=== PATIENT | female | born 1955 | race Caucasian/White ===

== ENCOUNTER → 2019-04-04 | Outpatient (CLI) | payer MEDICARE ==
--- NOTE | 2019-04-04 15:25 | REP ---
REASON: Pain. No priors. No trauma. Degenerative changes seen involving the elbow and wrist. There is no evidence of an acute fracture. Electronically Signed by Robert Grewal DO 04/05/2019 03:20 P
--- NOTE | 2019-04-04 15:27 | REP ---
REASON: Bilateral hand pain. Degenerative changes are seen throughout each hand. There is asymmetric intra-digital joint space narrowing bilaterally. There is no evidence of an acute fracture. IMPRESSION: Degenerative changes bilaterally. Electronically Signed by Robert Grewal DO 04/05/2019 03:20 P
--- NOTE | 2019-04-04 15:27 | REP ---
BILATERAL WRIST: REASON: Wrist pain. Degenerative change is seen involving each wrist. There is no acute fracture. IMPRESSION: Bilateral wrist degenerative changes. Electronically Signed by Robert Grewal DO 04/05/2019 03:20 P
== END ==
LOC: M CLY 14:25
PROVIDERS: ATTEND Physician Assistant
DX: M19.031 Primary osteoarthritis, right wrist (principal); M19.032 Primary osteoarthritis, left wrist; M19.041 Primary osteoarthritis, right hand; M19.042 Primary osteoarthritis, left hand; M19.021 Primary osteoarthritis, right elbow; M79.601 Pain in right arm; M25.531 Pain in right wrist
CPT/HCPCS: 73090; 73110; 73130; G0463

== ENCOUNTER → 2019-08-24 | Outpatient (CLI) | payer MEDICARE ==
--- NOTE | 2019-08-29 16:14 | REPMRS ---
Patient History The patient states she had a clinical breast exam in 06/2019. Patient has history of other cancer at age 62. No known family history of cancer. No Hormone Replacement Therapy Digital Woman Screen Mammo: August 24, 2019 - Exam #: [id number] Bilateral CC and MLO view(s) were taken. Technologist: Savannah Wilson, Technologist Prior study comparison: July 12, 2018, bilateral digital mammo screening bilat, performed at [facility]. July 11, 2017, bilateral digital woman screen mammo, performed at [facility]. FINDINGS: The breast tissue is almost entirely fat. There has been no change in the appearance of the mammogram from the prior studies. There is no interval development of dominant mass, architectural distortion, or grouped microcalcification typical of malignancy. 3-D tomosynthesis shows no additional findings. Assessment: BI-RADS/ACR category 1 mammogram. Negative Mammogram. Recommendation Routine screening mammogram of both breasts in 1 year (for women over age 40). This patient's Lifetime Breast Cancer RIsk is estimated at 8.0 %. This mammogram was interpreted with the aid of an FDA-approved computer-aided dectection system. Electronically Signed By: Juan M Celaya MD 08/29/19 [id number]
== END ==
LOC: M WHC 13:02
PROVIDERS: ATTEND Obstetrics & Gynecology
DX: Z12.31 Encounter for screening mammogram for malignant neoplasm of breast (principal); Z85.9 Personal history of malignant neoplasm, unspecified

== ENCOUNTER → 2019-08-30 | Outpatient (REF) | payer MEDICARE ==
[2019-08-30 18:58] LABS: ALBUMIN 3.6 GM/DL (3.2-5.2); ALT/SGPT 50 U/L (12-78); BILIRUBIN,TOTAL 0.4 MG/DL (0.2-1.0); BLOOD UREA NITROGEN 21 MG/DL (7-18); CALCIUM LEVEL 8.4 MG/DL (8.8-10.2); CARBON DIOXIDE LEVEL 24 MEQ/L (21-32); CHLORIDE LEVEL 110 MEQ/L (98-107); CREATININE FOR GFR 0.96 MG/DL (0.55-1.30); GLOMERULAR FILTRATION RATE > 60.0 (>45); GLUCOSE, FASTING 110 MG/DL (70-100); SODIUM LEVEL 142 MEQ/L (136-145); TOTAL PROTEIN 6.6 GM/DL (6.4-8.2)
[2019-08-30 19:14] LABS: HEMATOCRIT 42.7 % (36.0-47.0); HEMOGLOBIN 13.5 g/dl (12.0-15.5); MEAN CORPUSCULAR HEMOGLOBIN 30.1 pg (27.0-33.0); MEAN CORPUSCULAR HGB CONC 31.6 g/dl (32.0-36.5); MEAN CORPUSCULAR VOLUME 95.1 fl (80.0-96.0); RED BLOOD COUNT 4.49 10^6/uL (4.00-5.40); WHITE BLOOD COUNT 3.2 10^3/uL (4.0-10.0)
[2019-08-30 19:18] LABS: INR 1.12; PROTHROMBIN TIME 14.1 SECONDS (11.8-14.0)
[2019-08-30 19:50] LABS: PLATELET COUNT, AUTOMATED 85 10^3/uL (150-450)
== END ==
LOC: M LABDRWCV 16:20
DX: K74.60 Unspecified cirrhosis of liver (principal); E66.9 Obesity, unspecified

== ENCOUNTER → 2019-09-20 | Outpatient (CLI) | payer MEDICARE ==
[2019-09-20 11:29] LABS: BASO % 0.6 % (0.0-1.0); EOS # 0.1 10^3/uL (0.0-0.5); EOS % 2.3 % (0.0-3.0); HEMATOCRIT 42.3 % (36.0-47.0); HEMOGLOBIN 13.5 g/dl (12.0-15.5); LYMPH # 1.2 10^3/uL (1.5-5.0); LYMPH % 33.4 % (24.0-44.0); MEAN CORPUSCULAR HEMOGLOBIN 30.1 pg (27.0-33.0); MEAN CORPUSCULAR HGB CONC 31.9 g/dl (32.0-36.5); MEAN CORPUSCULAR VOLUME 94.4 fl (80.0-96.0); MONO # 0.2 10^3/uL (0.0-0.8); MONO % 6.3 % (0.0-5.0); NEUTROPHILS % 57.1 % (36.0-66.0); RED BLOOD COUNT 4.48 10^6/uL (4.00-5.40); WHITE BLOOD COUNT 3.5 10^3/uL (4.0-10.0)
[2019-09-20 11:31] LABS: PLATELET COUNT, AUTOMATED 79 10^3/uL (150-450)
[2019-09-20 11:42] LABS: INR 1.16; PROTHROMBIN TIME 14.5 SECONDS (11.8-14.0)
== END ==
LOC: M LAB 10:50
PROVIDERS: ATTEND Dentist
DX: K70.0 Alcoholic fatty liver (principal)

== ENCOUNTER → 2019-10-23 | Outpatient (CLI) | payer MEDICARE ==
--- NOTE | 2019-10-23 09:11 | REP ---
COMPLETE ABDOMINAL SONOGRAPHY: HISTORY: Cirrhosis. Fatty liver disease. Evaluate for HCC and portal hypertension and ascites. No comparison imaging. SONOGRAPHIC FINDINGS: Scanning through the right upper quadrant of the abdomen shows very limited visualization. Scan quality is inhibited by patient body habitus. Question of layered echogenic material in the region of the gallbladder. The gallbladder is poorly seen. Liver appears to have a coarse texture but its parenchyma is poorly displayed as well. No obvious hepatic mass lesion. CBD is normal measuring 0.4 cm in greatest diameter. The spleen is borderline in size measuring 13.7 cm in greatest diameter. There is no evidence of ascites. Normal caliber aorta is seen. Renal cortical echogenicity pattern appears to be normal. There is no evidence of hydronephrosis or renal mass. Right renal dimensions are 9.1 x 3.9 x 4.1 cm. Left kidney measures 9.4 x 3.7 x 4.0 cm. IMPRESSION: Limited image quality and visualization. Coarse liver texture. Question gallstones but gallbladder very poorly seen. No evidence of ascites. Borderline spleen size. Electronically Signed by Med Celaya MD 10/23/2019 05:54 P
== END ==
LOC: M RAD 07:17
PROVIDERS: ATTEND Internal Medicine Gastroenterology
DX: K74.60 Unspecified cirrhosis of liver (principal)

== ENCOUNTER → 2019-10-30 | Outpatient (REF) | payer MEDICARE ==
[~2019-10-30] MED LIST: AMLO5TAB6 PO; CALC600C3 PO; CVS50CAP PO; GABA-1171 PO; LAXA15TA PO; LEVO175T2 PO; LOSA100T50 PO; METO25TA4 PO; MULTCAP PO; NON-325T5 PO; OMEP40CA97 PO; SIMV10TA21 PO; VITA100T28 PO; VITA500T PO
[2019-10-30 17:24] LABS: BASO % 0.5 % (0.0-1.0); EOS # 0.1 10^3/uL (0.0-0.5); EOS % 2.2 % (0.0-3.0); HEMATOCRIT 39.6 % (36.0-47.0); HEMOGLOBIN 13.3 g/dl (12.0-15.5); LYMPH # 1.4 10^3/uL (1.5-5.0); LYMPH % 38.1 % (24.0-44.0); MEAN CORPUSCULAR HEMOGLOBIN 31.2 pg (27.0-33.0); MEAN CORPUSCULAR HGB CONC 33.6 g/dl (32.0-36.5); MONO # 0.3 10^3/uL (0.0-0.8); MONO % 7.6 % (0.0-5.0); NEUTROPHILS # 1.9 10^3/uL (1.5-8.5); NEUTROPHILS % 51.3 % (36.0-66.0); RED BLOOD COUNT 4.26 10^6/uL (4.00-5.40); WHITE BLOOD COUNT 3.7 10^3/uL (4.0-10.0)
[2019-10-30 17:27] LABS: PLATELET COUNT, AUTOMATED 59 10^3/uL (150-450)
[2019-10-30 18:11] LABS: ALBUMIN 3.6 GM/DL (3.2-5.2); BILIRUBIN,DIRECT 0.2 MG/DL (0.0-0.2); BILIRUBIN,TOTAL 0.4 MG/DL (0.2-1.0)
== END ==
LOC: M LABDRWCV 16:09
PROVIDERS: ATTEND Internal Medicine Gastroenterology
DX: K75.81 Nonalcoholic steatohepatitis (NASH) (principal)

== ENCOUNTER → 2019-11-07 | Outpatient (REF) | payer MEDICARE ==
[2019-11-07 16:23] LABS: INR 1.11; PARTIAL THROMBOPLASTIN TIME 31.6 SECONDS (25.0-38.4)
== END ==
LOC: M LABDRWCV 15:47
PROVIDERS: ATTEND Internal Medicine Gastroenterology
DX: K75.81 Nonalcoholic steatohepatitis (NASH) (principal)

== ENCOUNTER → 2019-12-03 | Outpatient (CLI) | payer MEDICARE ==
[~2019-12-03] MED LIST changes: +VITA-243 PO; -VITA500T PO
--- NOTE | 2019-12-05 17:14 | SLEEPCENT ---
DATE OF PROCEDURE: 12/03/2019 Ordered by: NIKKIE Cornelius Nocturnal polysomnography was performed for evaluation of sleep physiology in this patient with a history of excessive somnolence and nonrestorative sleep. 6 hours and 41 minutes of data were reviewed. There were 344 minutes of sleep identified. Sleep latency was normal at 10 minutes. REM latency was normal at 97 minutes. Sleep architecture was fairly good. There was some mild fragmentation. Three REM cycles were noted. Overall sleep efficiency was 86.8%. The patient's electrocardiogram showed a sinus rhythm with small complexes. Average heart rate 55 beats per minute. EEG showed reasonably normal waveforms for awake and sleep. There were 80 respiratory events identified of 10 seconds in duration or greater for an apnea-hypopnea index of 14. The events were primarily obstructive, not exclusive to sleep stage nor body posture. Arousals from respiratory events occurred 3.7 times per hour and oxygen desaturations were seen into the low 80s. There was some minor activity in the limb leads. No trains of events were seen and snoring was noted over the course of study. IMPRESSION Obstructive sleep apnea syndrome (G47.33). Apnea-hypopnea index 14. RECOMMENDATIONS The patient should be encouraged to return to the sleep disorder center for pressure therapy. In the interim, alcohol and sedative avoidance should be practiced and caution exercised during the operation of motor vehicles.
== END ==
LOC: M SLEEP 20:00
PROVIDERS: ATTEND Nurse Practitioner Family
DX: G47.33 Obstructive sleep apnea (adult) (pediatric) (principal)

== ENCOUNTER → 2020-01-21 | Outpatient (REF) | payer MEDICARE | LOC: M SFHCCLAY 10:10 | PROVIDERS: ATTEND Physician Assistant | DX: J35.8 Other chronic diseases of tonsils and adenoids (principal) ==

== ENCOUNTER → 2020-01-28 | Outpatient (CLI) | payer MEDICARE ==
[~2020-01-28] MED LIST changes: +AMOX875T2 PO; +CIPR-249 PO; +INDE60CA4 PO; +PROT1TAB2 PO; +PROTPAK PO
== END ==
LOC: M LABSMTC 12:52
PROVIDERS: ATTEND Anesthesiology
DX: Z01.818 Encounter for other preprocedural examination (principal); Z11.59 Encounter for screening for other viral diseases

== ENCOUNTER 2020-01-31 07:05 | Inpatient (IN) | payer MEDICARE ==
[~2020-01-31] VITALS: Ht 147.3 cm; Wt 75.3 kg
[~2020-01-31 07:05] MED LIST changes: -CIPR-249 PO; -INDE60CA4 PO; +NS 1,000 ML IV ONE; -PROT1TAB2 PO; -PROTPAK PO; +fentaNYL 100 MCG/2 ML INJECTION (J3010) As Ordered ONE
[2020-01-31] MEDS ORDERED: LIDOCAINE 2% 100MG/5ML SDV (FOR ANES.) As Ordered ONE (08:26)
[2020-01-31] MEDS ORDERED: propofoL 200 MG/20 ML VIAL As Ordered ONE ×2 (08:26→09:06)
[2020-01-31] MEDS ORDERED: LABETALOL 100MG/20ML VIAL As Ordered ONE (08:43)
[2020-01-31] MEDS ORDERED: NS 1,000 ML IV SCH (09:58)
[2020-01-31] MEDS ORDERED: fentaNYL 100 MCG/2 ML INJECTION (J3010) IV PRN (10:00)
[2020-01-31] MEDS ORDERED: LR 1,000 ML IV SCH ×3 (10:00→18:00)
[2020-01-31] MEDS ORDERED: ONDANSETRON 4MG/2ML VIAL IV PRN (10:00)
[2020-01-31] MEDS ORDERED: PANTOPRAZOLE SODIUM 40 MG in D5W 50 ML IV SCH (10:00)
[2020-01-31] MEDS ORDERED: MORPHINE 4 MG/ML 1ML VIAL/SYRINGE (J2270) IV PRN (10:15)
[2020-01-31 10:28] VITALS: BP 166/74
[2020-01-31 10:41] LABS: HEMOGLOBIN 12.8 g/dl (12.0-15.5); MEAN CORPUSCULAR HEMOGLOBIN 30.4 pg (27.0-33.0); MEAN CORPUSCULAR HGB CONC 32.8 g/dl (32.0-36.5); MEAN CORPUSCULAR VOLUME 92.6 fl (80.0-96.0); RED BLOOD COUNT 4.21 10^6/uL (4.00-5.40); WHITE BLOOD COUNT 3.3 10^3/uL (4.0-10.0)
--- NOTE | 2020-01-31 10:42 | ROOR ---
Patient Name: Brooklynn Jaramillo Procedure Date: 01/31/2020 8:27 AM Date of : 1955 Age: 64 Room: [facility] Gender: Female Note Status: Finalized Procedure: Colonoscopy Indications: High risk colon cancer surveillance: Personal history of colonic polyps Providers: Mehul Daily MD Referring MD: NIKKIE Parks pa-c Requesting Provider: Medicines: Monitored Anesthesia Care Complications: No immediate complications. Procedure: Pre-Anesthesia Assessment: - Prior to the procedure, a History and Physical was performed, and patient medications and allergies were reviewed. The patient is competent. The risks and benefits of the procedure and the sedation options and risks were discussed with the patient. All questions were answered and informed consent was obtained. Patient identification and proposed procedure were verified by the physician, the nurse and the anesthesiologist in the procedure room. Mental Status Examination: alert and oriented. Airway Examination: normal oropharyngeal airway and neck mobility. Respiratory Examination: clear to auscultation. CV Examination: normal. Prophylactic Antibiotics: The patient does not require prophylactic antibiotics. Prior Anticoagulants: The patient has taken no previous anticoagulant or antiplatelet agents. ASA Grade Assessment: II - A patient with mild systemic disease. After reviewing the risks and benefits, the patient was deemed in satisfactory condition to undergo the procedure. The anesthesia plan was to use monitored anesthesia care (MAC). Immediately prior to administration of medications, the patient was re-assessed for adequacy to receive sedatives. The heart rate, respiratory rate, oxygen saturations, blood pressure, adequacy of pulmonary ventilation, and response to care were monitored throughout the procedure. The physical status of the patient was re-assessed after the procedure. The Colonoscope was introduced through the anus and advanced to the cecum, identified by appendiceal orifice and ileocecal valve. The colonoscopy was performed without difficulty. The patient tolerated the procedure well. The quality of the bowel preparation was fair. The ileocecal valve, appendiceal orifice, and rectum were photographed. Scope insertion time was 2 minutes. Scope withdrawal time was 10 minutes. The total duration of the procedure was 14 minutes. Findings: The perianal and digital rectal examinations were normal. Three sessile polyps were found in the transverse colon and ascending colon. The polyps were 5 to 10 mm in size. These polyps were removed with a hot snare. Resection and retrieval were complete. Verification of patient identification for the specimen was done by the physician and nurse using the patient's name, date and medical record number. Estimated blood loss was minimal. Non-bleeding external and internal hemorrhoids were found during retroflexion. The hemorrhoids were medium-sized. Impression: - Preparation of the colon was fair. - Three 5 to 10 mm polyps in the transverse colon and in the ascending colon, removed with a hot snare. Resected and retrieved. - Non-bleeding external and internal hemorrhoids. Recommendation: - Patient has a contact number available for emergencies. The signs and symptoms of potential delayed complications were discussed with the patient. Return to normal activities tomorrow. Written discharge instructions were provided to the patient. - NPO today, then advance as tolerated to low sodium diet. - Continue present medications. - Follow the recommendations as per the other procedure note. - Await pathology results. - Repeat colonoscopy in 1 year because the bowel preparation was suboptimal and for surveillance of multiple polyps. - Return to primary care physician. - Telephone GI clinic for pathology results in 2 weeks. Mehul Daily MD Mehul Daily MD 01/31/2020 10:42:04 AM Electronically signed by Mehul Daily MD Number of Addenda: 0 Note Initiated On: 01/31/2020 8:27 AM Estimated Blood Loss: Estimated blood loss was minimal.
[2020-01-31 10:48] LABS: PLATELET COUNT, AUTOMATED 74 10^3/uL (150-450)
--- NOTE | 2020-01-31 10:49 | ROOR ---
Patient Name: Brooklynn Jaramillo Procedure Date: 01/31/2020 8:27 AM Date of : 1955 Age: 64 Room: [facility] Gender: Female Note Status: Finalized Procedure: Upper GI endoscopy Indications: Cirrhosis rule out esophageal varices, Follow-up of gastritis Providers: Mehul Daily MD Referring MD: NIKKIE Parks pa-c Requesting Provider: Medicines: Monitored Anesthesia Care Complications: No immediate complications. Procedure: Pre-Anesthesia Assessment: - Prior to the procedure, a History and Physical was performed, and patient medications and allergies were reviewed. The patient is competent. The risks and benefits of the procedure and the sedation options and risks were discussed with the patient. All questions were answered and informed consent was obtained. Patient identification and proposed procedure were verified by the physician, the nurse and the anesthesiologist in the procedure room. Mental Status Examination: alert and oriented. Airway Examination: normal oropharyngeal airway and neck mobility. Respiratory Examination: clear to auscultation. CV Examination: normal. Prophylactic Antibiotics: The patient does not require prophylactic antibiotics. Prior Anticoagulants: The patient has taken no previous anticoagulant or antiplatelet agents. ASA Grade Assessment: III - A patient with severe systemic disease. After reviewing the risks and benefits, the patient was deemed in satisfactory condition to undergo the procedure. The anesthesia plan was to use monitored anesthesia care (MAC). Immediately prior to administration of medications, the patient was re-assessed for adequacy to receive sedatives. The heart rate, respiratory rate, oxygen saturations, blood pressure, adequacy of pulmonary ventilation, and response to care were monitored throughout the procedure. The physical status of the patient was re-assessed after the procedure. The Endoscope was introduced through the mouth, and advanced to the second part of duodenum. The upper GI endoscopy was accomplished without difficulty. The patient tolerated the procedure well. Findings: There is no endoscopic evidence of varices in the entire esophagus. Multiple 8 to 15 mm pedunculated and sessile polyps with no bleeding and stigmata of recent bleeding were found in the cardia, in the gastric fundus and in the gastric body. The polyp was removed with a hot snare. Resection and retrieval were complete. For hemostasis, five hemostatic clips were successfully placed. There was no bleeding at the end of the procedure. One band was successfully placed. There was no bleeding at the end of the procedure. Scattered severe mucosal changes characterized by friability (with contact bleeding), granularity, inflammation and linear erosions were found in the gastric body and in the gastric antrum. Biopsies were taken with a cold forceps for Helicobacter pylori testing. Verification of patient identification for the specimen was done by the physician and nurse using the patient's name, date and medical record number. Estimated blood loss was minimal. The duodenal bulb and second portion of the duodenum were normal. Impression: - Multiple gastric polyps. Resected and retrieved. Clips were placed. Banded. - Friable (with contact bleeding), granular, inflamed and linearly eroded mucosa in the gastric body and antrum. Biopsied. - Normal duodenal bulb and second portion of the duodenum. Recommendation: - Patient has a contact number available for emergencies. The signs and symptoms of potential delayed complications were discussed with the patient. Return to normal activities tomorrow. Written discharge instructions were provided to the patient. - NPO today, and then start on clear liquid diet for 24 hours and then advance if tolerated to low sodium diet ( <2gm per day).. - Continue present medications. - IV PPI drip for 24 hours and then switch to oral PPI for total of 6 weeks. - Continue IV Octreotide drip of 50mcg/hr for 3- 5 days - Antibiotics (ceftriaxone - 1 gm once daily if not contra-indicated) for total of 7 days. ( if being discharged can switch to Oral ciprofloxacin). - Monitor Hemoglobin/Hematocrit every 6 - 8 hours: transfuse as needed to maintain Hb around 7-8. ( Do Not transfuse over that level). If platelets lower than 50 K please transfuse atleast 1 bag. - ICU/PCU monitoring for 24 hours. Patient is transferred to ICU for monitoring. - Do Not place NG or OG tube. - Give antiemetics IV PRN for 24 hours. - Obtain Ultrasound abdomen with doppler of the portal vein. - Update GI if any acute change in status. - At the time of discharge, please start on non selective betablocker ( prefer propranolol)-- dose titrated based on the BP and heart rate ( goal 55 - 60 / min). - Upon discharge please give outpatient appointment in GI clinic in 2-3 weeks. ( please call [phone]). Mehul Daily MD Mehul Daily MD 01/31/2020 10:48:19 AM Electronically signed by Mehul Daily MD Number of Addenda: 0 Note Initiated On: 01/31/2020 8:27 AM Estimated Blood Loss: Estimated blood loss was minimal.
--- NOTE | 2020-01-31 10:53 | HPEPDOC ---
General Date of Admission Jan 31, 2020 at 10:15 Date of Service: Jan 31, 2020 Chief Complaint The patient is a 64-year-old female admitted with a reason for visit of Surveillance For Varices,Colon Polyps. Source: Patient Exam Limitations: No limitations Timing/Duration: Other (not applicable) Severity: Other (not applicable) Associated Symptoms: Other (. Upper GI bleed) History of Present Illness This is a 63 years old white female with past medical history of hypertension, GERD, hypothyroidism, sleep apnea, restless legs, but it cirrhosis skin cancer, had an elective EGD done today by Dr. Daily, patient was found to have a multiple gastric polyps which were atypical looking and friable many took a sample of polyps. This started bleeding and since has patient has a low platelet count. It took her more than average time to stop the bleeding, but he is recommended to admit patient to ICU for close observation overnight. When examined patient, she denies any complaints, any chest pain, shortness of breath, nausea, vomiting or GI bleed Home Medications Scheduled Amlodipine Besylate (Amlodipine Besylate) 5 Mg Tablet, 5 MG PO DAILY, (Reported) Amoxicillin/Potassium Clav (Amox-Clav 875-125 mg Tablet) 1 Each Tablet, 1 TAB PO BID, (Reported) Ascorbic Acid (Vitamin C) 500 Mg Tablet, 500 MG PO DAILY, (Reported) Calcium Carbonate/Vitamin D3 (Calcium 600+D Softgel) 1 Each Capsule, 1 CAP PO DAILY, (Reported) Gabapentin (Gabapentin) 100 Mg Capsule, 100 MG PO TID, (Reported) Levothyroxine Sodium (Levothyroxine Sodium) 175 Mcg Tablet, 175 MCG PO DAILY, (Reported) Losartan Potassium (Losartan Potassium) 100 Mg Tablet, 100 MG PO DAILY, (Reported) Metoprolol Tartrate (Metoprolol Tartrate) 25 Mg Tablet, 25 MG PO BID, (Reported) Multivitamin (Multivitamins) 1 Each Capsule, 1 CAP PO DAILY, (Reported) Omeprazole (Omeprazole) 40 Mg Capsule.dr, 40 MG PO DAILY, (Reported) Pamabrom (Diuretic Softgel) 50 Mg Capsule, Unknown Dose PO DAILY, (Reported) Sennosides (Laxative Pills) 15 Mg Tablet, 25 MG PO Q2D, (Reported) Simvastatin (Simvastatin) 10 Mg Tablet, 10 MG PO QHS, (Reported) Thiamine Mononitrate (Vit B1) (Vitamin B-1) 100 Mg Tablet, Unknown Dose PO DAILY, (Reported) Scheduled PRN Acetaminophen (Acetaminophen) 325 Mg Tablet, 325 MG PO PRN PRN for PAIN, (Reported) Allergies Coded Allergies: No Known Allergies (Unverified , 11/02/19) Past Medical History Medical History Hypertension, GERD, hypothyroidism, obstructive sleep apnea, restless leg syndrome, cirrhosis of liver and skin cancer Surgical History , 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 Family History at the age of 74 due to unknown causes, one daughter of complication secondary to his skin cancer Social History * Smoker: former Smoker Alcohol: Denies Drugs: denies A-FIB/CHADSVASC A-FIB History Current/History of A-Fib/PAF?: No Review of Systems Constitutional: Denies: Chills, Fever, Malaise, Night Sweats, Weakness, Fatigue, Weight Loss, Lethargy, Other Eyes: Denies: Pain, Vision change, Conjunctivae inflammation, Eyelid inflammation, Redness, Other ENT: Denies: Head Aches, Ear Pain, Dysphagia, Sinus Congestion, Post Nasal Drip, Sore Throat, Epistaxis, Other Symptoms Skin: Denies: Rash, Lesions, Jaundice, Bruising, Itching, Dry, Breakdown, Nail Changes, Other Pulmonary: Denies: Dyspnea, Cough, Pleuritic Chest Pain, Other Symptoms Cardiovascular: Denies: Chest Pain, Palpitations, Orthopnea, Paroxysmal Noc. Dyspnea, Edema, Lt Headedness, Other Symptoms Gastrointestinal: Denies: Nausea, Vomiting, Abdominal Pain, Diarrhea, Constipation, Melena, Hematochezia, Other Symptoms Genitourinary: Denies: Dysuria, Frequency, Incontinence, Hematuria, Retention, Other Symptoms Hematologic: Denies: Bruising, Bleeding Excessively, Petecchia, Purpura, Enlarged Lymph Nodes, Other Hematologic Endocrine: Denies: Polydipsia, Polyphagia, Polyuria, Heat Intolerance, Cold Intolerance, Other Endocrine Sx Musculoskeletal: Denies: Neck Pain, Back Pain, Shoulder Pain, Arm Pain, Hand Pain, Leg Pain, Foot Pain, Joint Pain, Muscle Pain, Spasms, Other Symptoms Neurological: Denies: Weakness, Numbness, Incoordination, Change in speech, Confusion, Seizures, Other Symptoms Psych: Denies: Mood Normal, Anxiety, Depression, Memory Issues, Thoughts of Self Harm, Anger, Thoughts of Harming Other, Other Psych Physical Examination General Exam: Positive: Alert, Cooperative Eye Exam: Positive: PERRLA, Conjunctiva & lids normal ENT Exam: Positive: Atraumatic, Mucous membr. moist/pink Neck Exam: Positive: Supple Chest Exam: Positive: Clear to auscultation, Normal air movement Heart Exam: Positive: Normal S1, Normal S2 Abdomen Exam: Positive: Soft Extremity Exam: Positive: Normal pulses Skin Exam: Positive: Nl turgor and temperature Neuro Exam: Positive: Strength at 5/5 X4 ext, Sensation Intact, Cranial Nerves 3-12 NL Psych Exam: Positive: Mood NL, Oriented x 3 Vital Signs Vital Signs Date Time Temp Pulse Resp B/P (MAP) Pulse Ox O2 Delivery O2 Flow Rate FiO2 01/31/20 09:58 97.2 66 18 115/63 (80) 97 Nasal Cannula 2 Laboratory Data CBC/BMP Problems (1) UGIB (upper gastrointestinal bleed) Problem Text: Admit patient to ICU for close monitoring IV fluid normal saline 100 mL per hour Protonix drip set per orders Octreotide drip, and per orders H&H/CBC every 8 hours for 24 hour Transfuse PRBC for live hemoglobin less than 8 Transfuse platelets if platelet counts less than 50,000 DVT prophylaxis bilateral SCDs Diet is nothing by mouth Activity as tolerated Further instruction as per Dr. Daily (2) BRIGIDO (obstructive sleep apnea) Status: Chronic Problem Text: History of BRIGIDO, no intervention at the present time (3) HTN (hypertension) Status: Chronic Problem Text: History of hypertension All by mouth meds on hold (4) GERD (gastroesophageal reflux disease) Status: Chronic Problem Text: History of GERD in the past Currently on PPI infusion (5) Hypothyroid Status: Chronic Problem Text: By mouth meds on hold. Will restart from tomorrow (6) Cirrhosis of liver Status: Chronic Problem Text: Stable Will restart all home meds from tomorrow Plan / VTE VTE Prophylaxis Ordered?: Yes DAVID BRAY MD Jan 31, 2020 10:53
[2020-01-31] MEDS: cefTRIAXone SOD 1 GM in D5W MINI-BAG PLUS 50 ML IV SCH (11:39)
[2020-01-31] MEDS: PANTOPRAZOLE SODIUM 40 MG in D5W 50 ML IV SCH ×2 (11:47→15:47)
[2020-01-31] MEDS: OCTREOTIDE ACETATE 1,200 MCG in NS 238.8 ML IV SCH (11:47)
[2020-01-31] MEDS: ONDANSETRON 4MG/2ML VIAL IV SCH ×4 (11:47→23:19)
[2020-01-31 11:55] VITALS: BP 142/64
--- NOTE | 2020-01-31 13:22 | GIPN ---
[facility] GI Progress Note GI Progress Note DATE: Jan 31, 2020 Primary physician/ hospitalist: Shay LUNDY),/ Dr. Sparrow. Reason for hospitalization: post procedure monitoring and therapy for Gi bleeding. HPI: 63 year old female patient with HTN, hypothyroidism, HLD, obesity (BMI 38), was being evaluated in Gi clinic for portal hypertension, suspected liver cirrhosis from, steatohepatitis, and screening colonoscopy. Patient reports having EGD and colonoscopy every 2 years as per her previous GI for screening/ surveillance. Patient today underwent elective procedures detailed reports below. Post procedure patient is being admitted to hospital for monitoring and further evaluation. Post procedure on examination, patient denies any active Gi symptoms. --- EGD showed - Multiple gastric polyps and severe gastritis with contact bleeding were noted. One fundic polyp was resected and retrieved. Noted profuse bleeding, Clips and loop band was placed to control bleeding. No bleeding at the end of the procedure. Normal duodenal bulb and second portion of the duodenum. --- Colonoscopy few polyps removed. Fair bowel prep. Recommended to repeat in 1 year depending on pathology. Exam: Vitals: reviewed General: Alert and oriented x 3, not in distress HEENT: NO pallor, no icterus. Normal oropharynx, NO cervical lymph nodes. Chest: symmetric with bilateral clear air entry, CVS: S1, S2 heard, normal, no murmurs . Abdomen: non-distended, soft, non-tender, no palpable masses, normal bowel sounds heard. Extremities: no pedal edema, pulses palpable. 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 Moves all extremities Skin: no rash. Labs: reviewed. Impression: - Severe gastritis with gastric polyp and contact bleeding and polypectomy associated bleeding s/p treatment with clip and loop ligation in patient with liver cirrhosis and low platelets. Needs inpatient monitoring and treatment. - Liver cirrhosis likely etiology JURADO - compensated. No ascites, No esophageal varices on todays EGD but suspected portal hypertensive gastropathy vs other causes for gastritis. Recommendations: - Patient educated about the test results, possible differential diagnoses and All questions answered. - NPO today, and then start on clear liquid diet for 24 hours and then advance if tolerated to low sodium diet (<2gm per day).. - Continue present medications. - IV PPI drip for 24 hours and then switch to oral PPI for total of 6 weeks. - Continue IV Octreotide drip of 50mcg/hr for 3- 5 days - Antibiotics (ceftriaxone - 1 gm once daily if not contra-indicated) for total of 7 days. ( if being discharged can switch to Oral ciprofloxacin). - Monitor Hemoglobin/Hematocrit every 6 - 8 hours: transfuse as needed to maintain Hb around 7-8. ( Do Not transfuse over that level). If platelets lower than 50 K please transfuse atleast 1 bag. - ICU/PCU monitoring for 24 hours. Patient is transferred to ICU for monitoring. - Do Not place NG or OG tube. - Give anti-emetics IV PRN for 24 hours. - Obtain Ultrasound abdomen with doppler of the portal vein. - Based on the above, to consider IR evaluation. - Update GI if any acute change in status. - At the time of discharge, please start on non selective betablocker ( prefer propranolol)-- dose titrated based on the BP and heart rate ( goal 55 - 60 / min). - Upon discharge please give outpatient appointment in GI clinic in 2-3 weeks. ( please call [phone]). Plan of care discussed with patient and primary team. Patient verbalized understanding and agreed with the plan. Allergies Coded Allergies: No Known Allergies (Unverified , 11/02/19) Current Medications Current Medications Medications (Trade) Dose Ordered Sig/Garret Route PRN Reason Start Time Stop Time Status Last Admin Dose Admin Ceftriaxone Sodium 1 gm/ Dextrose 50 ml @ 100 mls/hr Q24H IV 01/31/20 11:00 01/31/20 11:39 Chlorhexidine Gluconate (Peridex Oral Rinse) SWAB/BRUSH ORAL CAVITY BID MT 01/31/20 21:00 Fentanyl Citrate (Sublimaze) 25 mcg Q5MP PRN IV PAIN LEVEL 5-10 01/31/20 10:00 01/31/20 11:00 DC Lactated Ringer's 1,000 ml @ 100 mls/hr Q10H IV 01/31/20 10:00 01/31/20 11:00 DC Morphine Sulfate (Morphine Sulfate Inj) 4 mg Q4HP PRN IV SEVERE PAIN (PS 8-10) 01/31/20 10:15 Octreotide Acetate 1200 mcg/ Sodium Chloride 240 ml @ 10 mls/hr Q24H IV 01/31/20 12:00 01/31/20 11:47 Ondansetron HCl (ZOFRAN INJection) 4 mg Q4H IV 01/31/20 11:00 01/31/20 11:47 Ondansetron HCl (ZOFRAN INJection) 4 mg Q4HP PRN IV NAUSEA OR VOMITING 01/31/20 10:00 01/31/20 11:00 DC Pantoprazole Sodium 40 mg/ Dextrose 50 ml @ 10 mls/hr Q5H IV 01/31/20 10:00 01/31/20 11:30 DC Pantoprazole Sodium 40 mg/ Dextrose 50 ml @ 10 mls/hr Q5H IV 01/31/20 11:45 01/31/20 11:47 Sodium Chloride 1,000 ml @ 50 mls/hr Q20H IV 01/31/20 09:58 VS,Lae, I+O VS, Cortesbone, I+O Laboratory Tests 01/31/20 10:30 Vital Signs Date Time Temp Pulse Resp B/P (MAP) Pulse Ox O2 Delivery O2 Flow Rate FiO2 01/31/20 11:55 96.7 62 16 142/64 (90) 92 Room Air 01/31/20 09:58 2 LATASHA CARDOZO MD Jan 31, 2020 13:22
[2020-01-31 14:00] VITALS: BP 145/68
[2020-01-31] MEDS ORDERED: LR 1,000 ML IV ONE (14:30)
[2020-01-31 15:50] LABS: BASO % 0.3 % (0.0-1.0); EOS % 0.6 % (0.0-3.0); HEMATOCRIT 38.3 % (36.0-47.0); LYMPH # 0.9 10^3/uL (1.5-5.0); LYMPH % 25.4 % (24.0-44.0); MEAN CORPUSCULAR HEMOGLOBIN 31.1 pg (27.0-33.0); MEAN CORPUSCULAR HGB CONC 33.9 g/dl (32.0-36.5); MEAN CORPUSCULAR VOLUME 91.6 fl (80.0-96.0); MONO # 0.2 10^3/uL (0.0-0.8); MONO % 6.5 % (0.0-5.0); NEUTROPHILS # 2.3 10^3/uL (1.5-8.5); NEUTROPHILS % 66.9 % (36.0-66.0); PLATELET COUNT, AUTOMATED 63 10^3/uL (150-450); RED BLOOD COUNT 4.18 10^6/uL (4.00-5.40); WHITE BLOOD COUNT 3.4 10^3/uL (4.0-10.0)
[2020-01-31 15:59] LABS: INR 1.17; PROTHROMBIN TIME 14.6 SECONDS (11.8-14.0)
[2020-01-31 16:00] VITALS: BP 146/67
[2020-01-31 16:00] LABS: PARTIAL THROMBOPLASTIN TIME 30.1 SECONDS (25.0-38.4)
[2020-01-31] MEDS ORDERED: LIDOCAINE VISCOUS 2% SOLN 15ML UDC SS PRN (16:00)
[2020-01-31 16:22] LABS: ALBUMIN 3.3 GM/DL (3.2-5.2); ALT/SGPT 39 U/L (12-78); BILIRUBIN,DIRECT 0.2 MG/DL (0.0-0.2); BILIRUBIN,TOTAL 0.4 MG/DL (0.2-1.0); BLOOD UREA NITROGEN 11 MG/DL (7-18); CALCIUM LEVEL 8.1 MG/DL (8.8-10.2); CARBON DIOXIDE LEVEL 23 MEQ/L (21-32); CHLORIDE LEVEL 110 MEQ/L (98-107); GLOMERULAR FILTRATION RATE > 60.0 (>45); GLUCOSE, FASTING 92 MG/DL (70-100); POTASSIUM SERUM 4.2 MEQ/L (3.5-5.1); SODIUM LEVEL 140 MEQ/L (136-145); TOTAL PROTEIN 5.8 GM/DL (6.4-8.2)
[2020-01-31] MEDS ORDERED: PANTOPRAZOLE 40MG TAB (PROTONIX) PO SCH (18:00)
[2020-01-31 20:00] VITALS: BP 144/66
[2020-01-31] MEDS: CHLORHEXIDINE GLUCONATE 0.12 % 15ML UDC (PERIDEX ORAL RINSE) MT SCH (20:08)
[2020-01-31] MEDS: PANTOPRAZOLE 40MG VIAL (C9113 PER 1) IV SCH (20:08)
[2020-02-01] VITALS: BP 121/58
[2020-02-01 02:08] LABS: HEMATOCRIT 34.4 % (36.0-47.0); HEMOGLOBIN 11.6 g/dl (12.0-15.5); MEAN CORPUSCULAR HEMOGLOBIN 30.9 pg (27.0-33.0); MEAN CORPUSCULAR HGB CONC 33.7 g/dl (32.0-36.5); MEAN CORPUSCULAR VOLUME 91.7 fl (80.0-96.0); RED BLOOD COUNT 3.75 10^6/uL (4.00-5.40); WHITE BLOOD COUNT 3.7 10^3/uL (4.0-10.0)
[2020-02-01 02:10] LABS: PLATELET COUNT, AUTOMATED 67 10^3/uL (150-450)
[2020-02-01] MEDS: ONDANSETRON 4MG/2ML VIAL IV SCH ×6 (03:00→23:00)
[2020-02-01 04:00] VITALS: BP 142/67
[2020-02-01 07:16] VITALS: BP 165/74
[2020-02-01] MEDS: CHLORHEXIDINE GLUCONATE 0.12 % 15ML UDC (PERIDEX ORAL RINSE) MT SCH ×2 (09:00→21:34)
--- NOTE | 2020-02-01 09:52 | IPNPDOC ---
Subjective Date Seen The patient was seen on 02/01/20. Subjective Chief Complaint/HPI Patient offers no new complaints. No abdominal pain, no nausea, vomiting, tolerated clear liquids this morning General: Denies: ROS Unobtainable, Chills, Night Sweats, Fatigue, Malaise, Normal Appetite, Other Symptoms Constitutional: Denies: Chills, Fever, Malaise, Night Sweats, Weakness, Fatigue, Weight Loss, Lethargy, Other Pulmonary: Denies: Dyspnea, Cough, Pleuritic Chest Pain, Other Symptoms Cardiovascular: Denies: Chest Pain, Palpitations, Orthopnea, Paroxysmal Noc. Dyspnea, Edema, Lt Headedness, Other Symptoms Genitourinary: Denies: Dysuria, Frequency, Incontinence, Hematuria, Retention, Other Symptoms Hematologic: Denies: Bruising, Bleeding Excessively, Petecchia, Purpura, Enlarged Lymph Nodes, Other Hematologic Endocrine: Denies: Polydipsia, Polyphagia, Polyuria, Heat Intolerance, Cold Intolerance, Other Endocrine Sx Musculoskeletal: Denies: Neck Pain, Back Pain, Shoulder Pain, Arm Pain, Hand Pain, Leg Pain, Foot Pain, Joint Pain, Muscle Pain, Spasms, Other Symptoms Neurological: Denies: Weakness, Numbness, Incoordination, Change in speech, Confusion, Seizures, Other Symptoms Objective Physical Examination General Exam: Positive: Alert, Cooperative Eye Exam: Positive: PERRLA, Conjunctiva & lids normal ENT Exam: Positive: Atraumatic, Mucous membr. moist/pink Neck Exam: Positive: Supple Chest Exam: Positive: Clear to auscultation, Normal air movement Heart Exam: Positive: Normal S1, Normal S2 Abdomen Exam: Positive: Soft Extremity Exam: Positive: Normal pulses Skin Exam: Positive: Nl turgor and temperature Neuro Exam: Positive: Strength at 5/5 X4 ext, Sensation Intact, Cranial Nerves 3-12 NL Psych Exam: Positive: Mood NL, Oriented x 3 Assessment /Plan Problems (1) UGIB (upper gastrointestinal bleed) Status: Acute Problem Text: Patient is clinically stable as no complaints. No nausea, vomiting, abdominal pain, dark stools are vomiting blood, etc. Patient tolerated clear liquid diets this morning Discussed with Dr. Abimbola Perez [2 g sodium diet, DC IV fluids, DC IV Protonix but continue IV octreotide Continue all home meds including antihypertensive meds CBC in a.m. Activity as tolerated Possible discharge in a.m. once cleared by GI (2) Hypothyroid Status: Chronic Problem Text: Continue home meds (3) BRIGIDO (obstructive sleep apnea) Status: Chronic Problem Text: Continue supportive care (4) HTN (hypertension) Status: Chronic Problem Text: Continue all home meds (5) GERD (gastroesophageal reflux disease) Status: Chronic Problem Text: Continue PPIs as per orders (6) Cirrhosis of liver Status: Chronic Problem Text: Continue home meds Plan/VTE VTE Prophylaxis Ordered?: Yes VS, I&O, 24H, Fishbone Vital Signs/I&O Vital Signs Date Time Temp Pulse Resp B/P (MAP) Pulse Ox O2 Delivery O2 Flow Rate FiO2 02/01/20 07:16 98.2 65 18 165/74 (104) 97 Room Air 01/31/20 09:58 2 I&O- Last 24 Hours up to 6 AM 02/01/20 06:00 Intake Total 1785 ml Output Total 1475 ml Balance 310 ml Laboratory Data 24H LABS Laboratory Tests 2 01/31/20 10:30: Nucleated Red Blood Cells % (auto) 0.0, Immature Platelet Fraction 5.0 01/31/20 15:42: Nucleated Red Blood Cells % (auto) 0.0, Immature Granulocyte % (Auto) 0.3, Neutrophils (%) (Auto) 66.9H, Lymphocytes (%) (Auto) 25.4, Monocytes (%) (Auto) 6.5H, Eosinophils (%) (Auto) 0.6, Basophils (%) (Auto) 0.3, Neutrophils # (Auto) 2.3, Lymphocytes # (Auto) 0.9L, Monocytes # (Auto) 0.2, Eosinophils # (Auto) 0.0, Basophils # (Auto) 0.0, Prothrombin Time 14.6H, Prothromb Time International Ratio 1.17, Activated Partial Thromboplast Time 30.1, Anion Gap 7L, Glomerular Filtration Rate > 60.0, Calcium Level 8.1L, Total Bilirubin 0.4, Direct Bilirubin 0.2, Aspartate Amino Transf (AST/SGOT) 54H, Alanine Aminotransferase (ALT/SGPT) 39, Alkaline Phosphatase 104, Total Protein 5.8L, Albumin 3.3, Albumin/Globulin Ratio 1.3 02/01/20 01:52: Nucleated Red Blood Cells % (auto) 0.0 CBC/BMP Laboratory Tests 01/31/20 10:30 01/31/20 15:42 02/01/20 01:52 DAVID BRAY MD Feb 01, 2020 09:52
[2020-02-01] MEDS: PANTOPRAZOLE 40MG VIAL (C9113 PER 1) IV SCH ×2 (10:17→20:15)
[2020-02-01] MEDS: GABAPENTIN 100 MG CAP PO SCH ×3 (10:18→20:16)
[2020-02-01] MEDS: METOPROLOL TART 25 MG TABLET PO SCH ×2 (10:18→20:21)
[2020-02-01] MEDS: LOSARTAN 50MG TABLET PO SCH (10:18)
[2020-02-01] MEDS: amLODIPine 5 MG TAB PO SCH (10:19)
[2020-02-01] MEDS: cefTRIAXone SOD 1 GM in D5W MINI-BAG PLUS 50 ML IV SCH (10:19)
[2020-02-01] MEDS: OCTREOTIDE ACETATE 1,200 MCG in NS 238.8 ML IV SCH (10:19)
[2020-02-01 10:30] LABS: HEMATOCRIT 38.1 % (36.0-47.0); HEMOGLOBIN 12.6 g/dl (12.0-15.5); MEAN CORPUSCULAR HEMOGLOBIN 30.6 pg (27.0-33.0); MEAN CORPUSCULAR HGB CONC 33.1 g/dl (32.0-36.5); MEAN CORPUSCULAR VOLUME 92.5 fl (80.0-96.0); RED BLOOD COUNT 4.12 10^6/uL (4.00-5.40); WHITE BLOOD COUNT 3.4 10^3/uL (4.0-10.0)
[2020-02-01 10:38] LABS: PLATELET COUNT, AUTOMATED 66 10^3/uL (150-450)
[2020-02-01 11:30] VITALS: BP 143/70
[2020-02-01 18:14] LABS: HEMATOCRIT 36.1 % (36.0-47.0); MEAN CORPUSCULAR HEMOGLOBIN 30.6 pg (27.0-33.0); MEAN CORPUSCULAR HGB CONC 33.2 g/dl (32.0-36.5); MEAN CORPUSCULAR VOLUME 92.1 fl (80.0-96.0); RED BLOOD COUNT 3.92 10^6/uL (4.00-5.40); WHITE BLOOD COUNT 3.5 10^3/uL (4.0-10.0)
[2020-02-01 18:22] LABS: PLATELET COUNT, AUTOMATED 71 10^3/uL (150-450)
[2020-02-01] MEDS ORDERED: SIMVASTATIN 10 MG TAB PO SCH (21:00)
[2020-02-01 22:00] VITALS: BP 145/74
[2020-02-02] MEDS: ONDANSETRON 4MG/2ML VIAL IV SCH ×4 (02:24→14:21)
[2020-02-02 06:00] VITALS: BP 129/53
[2020-02-02 06:47] LABS: BASO % 0.6 % (0.0-1.0); EOS # 0.1 10^3/uL (0.0-0.5); HEMATOCRIT 36.2 % (36.0-47.0); HEMOGLOBIN 11.9 g/dl (12.0-15.5); LYMPH # 1.3 10^3/uL (1.5-5.0); LYMPH % 38.8 % (24.0-44.0); MEAN CORPUSCULAR HEMOGLOBIN 30.5 pg (27.0-33.0); MEAN CORPUSCULAR HGB CONC 32.9 g/dl (32.0-36.5); MEAN CORPUSCULAR VOLUME 92.8 fl (80.0-96.0); MONO # 0.3 10^3/uL (0.0-0.8); MONO % 7.8 % (0.0-5.0); NEUTROPHILS # 1.7 10^3/uL (1.5-8.5); NEUTROPHILS % 49.5 % (36.0-66.0); WHITE BLOOD COUNT 3.4 10^3/uL (4.0-10.0)
[2020-02-02 06:51] LABS: PLATELET COUNT, AUTOMATED 70 10^3/uL (150-450)
[2020-02-02 07:21] LABS: ALBUMIN 3.1 GM/DL (3.2-5.2); ALT/SGPT 38 U/L (12-78); BILIRUBIN,TOTAL 0.4 MG/DL (0.2-1.0); BLOOD UREA NITROGEN 20 MG/DL (7-18); CALCIUM LEVEL 8.4 MG/DL (8.8-10.2); CARBON DIOXIDE LEVEL 25 MEQ/L (21-32); CHLORIDE LEVEL 110 MEQ/L (98-107); CREATININE FOR GFR 0.88 MG/DL (0.55-1.30); GLOMERULAR FILTRATION RATE > 60.0 (>45); GLUCOSE, FASTING 131 MG/DL (70-100); POTASSIUM SERUM 4.1 MEQ/L (3.5-5.1); SODIUM LEVEL 141 MEQ/L (136-145); TOTAL PROTEIN 5.6 GM/DL (6.4-8.2)
[2020-02-02] MEDS: CHLORHEXIDINE GLUCONATE 0.12 % 15ML UDC (PERIDEX ORAL RINSE) MT SCH (09:12)
[2020-02-02] MEDS: GABAPENTIN 100 MG CAP PO SCH (09:12)
[2020-02-02] MEDS: PANTOPRAZOLE 40MG VIAL (C9113 PER 1) IV SCH (09:13)
[2020-02-02 09:14] VITALS: BP 148/87
[2020-02-02] MEDS: METOPROLOL TART 25 MG TABLET PO SCH (09:14)
[2020-02-02] MEDS: amLODIPine 5 MG TAB PO SCH (09:14)
[2020-02-02] MEDS: LOSARTAN 50MG TABLET PO SCH (09:14)
[2020-02-02] MEDS: OCTREOTIDE ACETATE 1,200 MCG in NS 238.8 ML IV SCH (09:57)
[2020-02-02] MEDS ORDERED: CIPR-249 PO (10:01)
[2020-02-02] MEDS ORDERED: PROTPAK PO (10:01)
[2020-02-02] MEDS ORDERED: INDE60CA4 PO (10:03)
[2020-02-02] MEDS ORDERED: PROT1TAB2 PO (10:05)
[2020-02-02] MEDS: cefTRIAXone SOD 1 GM in D5W MINI-BAG PLUS 50 ML IV SCH (11:00)
--- NOTE | 2020-02-02 13:24 | DS.PDOC ---
Discharge Summary General Date of Admission Jan 31, 2020 at 10:15 Date of Discharge 02/02/20 Discharge Summary PROCEDURES PERFORMED DURING STAY: None. ADMITTING DIAGNOSES: 1. GI bleed. DISCHARGE DIAGNOSES: 1. GI bleed, gastric polyps, hypertension, GERD, hypothyroidism, obstructive sleep apnea. COMPLICATIONS/CHIEF COMPLAINT: Surveillance For Varices,Colon Polyps. HISTORY OF PRESENT ILLNESS: This is a 63 years old white female with past medical history of hypertension, GERD, hypothyroidism, sleep apnea, restless legs, but it cirrhosis skin cancer, had an elective EGD done today by Dr. Daily, patient was found to have a multiple gastric polyps which were atypical looking and friable many took a sample of polyps. This started bleeding and since has patient has a low platelet count. It took her more than average time to stop the bleeding, but he is recommended to admit patient to ICU for cl ose observation overnight. When examined patient, she denies any complaints, any chest pain, shortness of breath, nausea, vomiting or GI bleed. HOSPITAL COURSE: Patient was admitted with the possible GI bleed secondary to polypectomy, which most likely secondary to low platelets. Initially patient was admitted to ICU and started on Protonix, octreotide drips. Letter Protonix was changed to IV pushes but octreotide drip was continues as per GIs recommendation. Patient H&H remained stable. Her last hemoglobin is 11.9 and hematocrit 36.2. Patient has been tolerating oral feeding very well since yesterday and I discussed this case with Dr. Daily today and he agreed to discharge patient home. By mouth Cipro, by mouth Protonix and change metoprolol to propranolol to to prevent variceal bleed as well. Patient is clinically stable and will be discharged home and follow with Dr. Daily in 1-2 weeks. DISCHARGE MEDICATIONS: Please see below. ALLERGIES: Please see below. PHYSICAL EXAMINATION ON DISCHARGE: VITAL SIGNS: Please see below. GENERAL: Within normal limits HEENT: By lifestyle regular muscles intact NECK: [Supple CVS EXAMINATION: S1, S2, regular RESPIRATORY EXAMINATION: Clear to A&P ABDOMINAL EXAMINATION: Benign EXTREMITIES: No clubbing, cyanosis, edema SKIN: Normal NEUROLOGICAL EXAMINATION: . No focal motor sensory deficit PSYCHIATRIC EXAMINATION: Normal LABORATORY DATA: Please see below. IMAGING: Not applicable PROGNOSIS: Good ACTIVITY: As tolerated. DIET: As tolerated DISCHARGE PLAN: Discharged home DISPOSITION: Home. DISCHARGE INSTRUCTIONS: 1. As per discharge instructions. ITEMS TO FOLLOWUP ON ON OUTPATIENT: 1. Follow with Dr. Adarsh White in 1-2 weeks. DISCHARGE CONDITION: Stable. TIME SPENT ON DISCHARGE:36 minutes. Vital Signs/I&Os Vital Signs Date Time Temp Pulse Resp B/P (MAP) Pulse Ox O2 Delivery O2 Flow Rate FiO2 02/02/20 09:14 63 148/87 02/02/20 06:00 98.3 16 95 Room Air 01/31/20 09:58 2 I&O- Last 24 Hours up to 6 AM 02/02/20 06:00 Intake Total 630 ml Output Total 425 ml Balance 205 ml Laboratory Data Labs 24H Laboratory Tests 2 02/01/20 18:00: Nucleated Red Blood Cells % (auto) 0.0, Immature Platelet Fraction 3.8 02/02/20 06:18: Nucleated Red Blood Cells % (auto) 0.0, Immature Granulocyte % (Auto) 0.3, Neutrophils (%) (Auto) 49.5, Lymphocytes (%) (Auto) 38.8, Monocytes (%) (Auto) 7.8H, Eosinophils (%) (Auto) 3.0, Basophils (%) (Auto) 0.6, Neutrophils # (Auto) 1.7, Lymphocytes # (Auto) 1.3L, Monocytes # (Auto) 0.3, Eosinophils # (Auto) 0.1, Basophils # (Auto) 0.0, Anion Gap 6L, Glomerular Filtration Rate > 60.0, Calcium Level 8.4L, Total Bilirubin 0.4, Aspartate Amino Transf (AST/SGOT) 42H, Alanine Aminotransferase (ALT/SGPT) 38, Alkaline Phosphatase 100, Total Protein 5.6L, Albumin 3.1L, Albumin/Globulin Ratio 1.2 CBC/BMP Laboratory Tests 02/01/20 18:00 02/02/20 06:18 Discharge Medications Scheduled Amlodipine Besylate (Amlodipine Besylate) 5 Mg Tablet, 5 MG PO DAILY, (Reported) Ascorbic Acid (Vitamin C) 500 Mg Tablet, 500 MG PO DAILY, (Reported) Calcium Carbonate/Vitamin D3 (Calcium 600+D Softgel) 1 Each Capsule, 1 CAP PO DAILY, (Reported) Ciprofloxacin HCl (Cipro) 500 Mg Tablet, 500 MG PO BID Gabapentin (Gabapentin) 100 Mg Capsule, 100 MG PO TID, (Reported) Levothyroxine Sodium (Levothyroxine Sodium) 175 Mcg Tablet, 175 MCG PO DAILY, (Reported) Losartan Potassium (Losartan Potassium) 100 Mg Tablet, 100 MG PO DAILY, (Reported) Multivitamin (Multivitamins) 1 Each Capsule, 1 CAP PO DAILY, (Reported) Omeprazole (Omeprazole) 40 Mg Capsule.dr, 40 MG PO DAILY, (Reported) Pamabrom (Diuretic Softgel) 50 Mg Capsule, Unknown Dose PO DAILY, (Reported) Pantoprazole Sodium (Protonix) 40 Mg Tablet.dr, 1 TAB PO DAILY Propranolol Hcl (Inderal LA) 60 Mg Cap.sa.24h, 60 MG PO DAILY Sennosides (Laxative Pills) 15 Mg Tablet, 25 MG PO Q2D, (Reported) Simvastatin (Simvastatin) 10 Mg Tablet, 10 MG PO QHS, (Reported) Thiamine Mononitrate (Vit B1) (Vitamin B-1) 100 Mg Tablet, Unknown Dose PO DAILY, (Reported) Scheduled PRN Acetaminophen (Acetaminophen) 325 Mg Tablet, 325 MG PO PRN PRN for PAIN, (Report ed) Allergies Coded Allergies: No Known Allergies (Unverified , 11/02/19) DAVID BRAY MD Feb 02, 2020 13:24
== END 2020-02-02 14:27 | disposition home or self-care (01) | DRG 907 ==
LOC: M OPP 07:05 → M ICU 10:15 → M MSPAV 02-01 11:18
PROVIDERS: ADMIT Internal Medicine; ATTEND Internal Medicine
PROC: 0DBK8ZX Excision of Ascending Colon, Via Natural or Artificial Opening Endoscopic, Diagnostic (ICD-10-PCS; 2020-01-31)
PROC: 0DBL8ZX Excision of Transverse Colon, Via Natural or Artificial Opening Endoscopic, Diagnostic (ICD-10-PCS; 2020-01-31)
PROC: 0DB68ZX Excision of Stomach, Via Natural or Artificial Opening Endoscopic, Diagnostic (ICD-10-PCS; 2020-01-31)
PROC: 0W3P7ZZ Control Bleeding in Gastrointestinal Tract, Via Natural or Artificial Opening (ICD-10-PCS; principal; 2020-01-31 08:15)
DX: K91.840 Postprocedural hemorrhage of a digestive system organ or structure following a digestive system procedure (principal); K29.71 Gastritis, unspecified, with bleeding; K31.7 Polyp of stomach and duodenum; K74.60 Unspecified cirrhosis of liver; K75.81 Nonalcoholic steatohepatitis (NASH); G47.33 Obstructive sleep apnea (adult) (pediatric); I10 Essential (primary) hypertension; K21.9 Gastro-esophageal reflux disease without esophagitis; E03.9 Hypothyroidism, unspecified; G25.81 Restless legs syndrome; Z79.899 Other long term (current) drug therapy; Z87.891 Personal history of nicotine dependence; E66.9 Obesity, unspecified; Z68.38 Body mass index [BMI] 38.0-38.9, adult; D12.3 Benign neoplasm of transverse colon; D12.2 Benign neoplasm of ascending colon

== ENCOUNTER → 2020-02-11 | Outpatient (REF) | payer MEDICARE ==
[~2020-02-11] MED LIST changes: +CIPR-249 PO; +INDE60CA4 PO; -NS 1,000 ML IV ONE; +PROT1TAB2 PO; +PROTPAK PO; -fentaNYL 100 MCG/2 ML INJECTION (J3010) As Ordered ONE
[2020-02-11 16:30] LABS: BASO % 0.9 % (0.0-1.0); EOS # 0.1 10^3/uL (0.0-0.5); EOS % 2.8 % (0.0-3.0); HEMATOCRIT 37.6 % (36.0-47.0); HEMOGLOBIN 12.2 g/dl (12.0-15.5); LYMPH # 1.2 10^3/uL (1.5-5.0); LYMPH % 37.4 % (24.0-44.0); MEAN CORPUSCULAR HEMOGLOBIN 30.1 pg (27.0-33.0); MEAN CORPUSCULAR HGB CONC 32.4 g/dl (32.0-36.5); MEAN CORPUSCULAR VOLUME 92.8 fl (80.0-96.0); MONO # 0.2 10^3/uL (0.0-0.8); MONO % 7.4 % (0.0-5.0); NEUTROPHILS # 1.7 10^3/uL (1.5-8.5); NEUTROPHILS % 51.5 % (36.0-66.0); RED BLOOD COUNT 4.05 10^6/uL (4.00-5.40); WHITE BLOOD COUNT 3.3 10^3/uL (4.0-10.0)
[2020-02-11 16:50] LABS: HEMOGLOBIN A1c 4.8 %
[2020-02-11 16:54] LABS: PLATELET COUNT, AUTOMATED 61 10^3/uL (150-450)
[2020-02-11 17:04] LABS: ALBUMIN 3.3 GM/DL (3.2-5.2); ALT/SGPT 31 U/L (12-78); BILIRUBIN,TOTAL 0.8 MG/DL (0.2-1.0); BLOOD UREA NITROGEN 18 MG/DL (7-18); CALCIUM LEVEL 8.4 MG/DL (8.8-10.2); CARBON DIOXIDE LEVEL 25 MEQ/L (21-32); CHLORIDE LEVEL 109 MEQ/L (98-107); CHOLESTEROL LEVEL 154 MG/DL (<200); CHOLESTEROL RISK RATIO 2.851 (<5); CREATININE FOR GFR 0.97 MG/DL (0.55-1.30); GLOMERULAR FILTRATION RATE > 60.0 (>45); GLUCOSE, FASTING 95 MG/DL (70-100); HDL CHOLESTEROL 54 MG/DL (>40); LDL CHOLESTEROL 69 MG/DL (<100); NON-HDL-C 100 MG/DL; POTASSIUM SERUM 4.1 MEQ/L (3.5-5.1); SODIUM LEVEL 140 MEQ/L (136-145); TOTAL PROTEIN 5.9 GM/DL (6.4-8.2); TRIGLYCERIDES LEVEL 154 MG/DL (<150)
== END ==
LOC: M SFHCCLAY 10:10
PROVIDERS: ATTEND Physician Assistant
DX: K92.2 Gastrointestinal hemorrhage, unspecified (principal); K31.7 Polyp of stomach and duodenum; D69.6 Thrombocytopenia, unspecified; I11.9 Hypertensive heart disease without heart failure; E66.01 Morbid (severe) obesity due to excess calories; Z79.899 Other long term (current) drug therapy

== ENCOUNTER → 2020-03-03 | Outpatient (REF) | payer MEDICARE ==
[~2020-03-03] MED LIST changes: +AMLO1TAB24 PO; -AMLO5TAB6 PO; +C PAP PO
[2020-03-03 16:58] LABS: INR 1.07; PROTHROMBIN TIME 13.6 SECONDS (11.8-14.0)
[2020-03-03 16:59] LABS: PARTIAL THROMBOPLASTIN TIME 29.5 SECONDS (25.0-38.4)
[2020-03-03 17:56] LABS: CREATININE FOR GFR 1.04 MG/DL (0.55-1.30); GLOMERULAR FILTRATION RATE 56.6 (>45); PERCENT SATURATION 24.9 % (13.2-45.0)
[2020-03-03 18:38] LABS: BASO % 0.2 % (0.0-1.0); EOS # 0.1 10^3/uL (0.0-0.5); EOS % 1.9 % (0.0-3.0); HEMATOCRIT 39.7 % (36.0-47.0); HEMOGLOBIN 12.8 g/dl (12.0-15.5); LYMPH # 1.2 10^3/uL (1.5-5.0); LYMPH % 29.4 % (24.0-44.0); MEAN CORPUSCULAR HEMOGLOBIN 30.1 pg (27.0-33.0); MEAN CORPUSCULAR HGB CONC 32.2 g/dl (32.0-36.5); MEAN CORPUSCULAR VOLUME 93.4 fl (80.0-96.0); MONO # 0.3 10^3/uL (0.0-0.8); MONO % 6.9 % (0.0-5.0); NEUTROPHILS # 2.6 10^3/uL (1.5-8.5); NEUTROPHILS % 61.4 % (36.0-66.0); RED BLOOD COUNT 4.25 10^6/uL (4.00-5.40); WHITE BLOOD COUNT 4.2 10^3/uL (4.0-10.0)
[2020-03-03 19:05] LABS: PLATELET COUNT, AUTOMATED 82 10^3/uL (150-450)
== END ==
LOC: M LABDRAWC 15:51
PROVIDERS: ATTEND Internal Medicine Gastroenterology
DX: K75.81 Nonalcoholic steatohepatitis (NASH) (principal); K74.60 Unspecified cirrhosis of liver; K76.6 Portal hypertension

== ENCOUNTER → 2020-05-05 | Outpatient (CLI) | payer MEDICARE ==
--- NOTE | 2020-05-21 13:41 | REP ---
COMPLETE ABDOMINAL ULTRASOUND CLINICAL: History of cirrhosis. FINDINGS: The liver demonstrates coarsened echotexture and appears mildly hyperechoic consistent with cirrhosis. No focal hepatic lesions are identified. The pancreas is incompletely evaluated due to interposed bowel gas, but visualized portions appear normal. The spleen is enlarged and measures 13.1 x 13.3 x 6.4 cm (splenic index equals 1,115). No focal splenic lesion identified. The gallbladder demonstrates echogenic material suggesting tumefactive sludge without wall thickening. Small gallstones are also suggested. No pericholecystic fluid. No biliary ductal dilatation is appreciated, and the common bile duct measures 3.4 mm diameter. The right kidney is normal in appearance without hydronephrosis and measures 10.1 x 3.7 x 3.7 cm. The left kidney is limited in evaluation due to positioning but measures approximately 9.0 x 4.7 x 3.8 cm without hydronephrosis. The abdominal aorta is incompletely evaluated due to interposed bowel gas, but visualized portions appear relatively normal and measure up to 2.2 cm maximal diameter. No ascites. IMPRESSION: * Hepatic echotexture consistent with cirrhosis without focal hepatic lesion identified. * Splenomegaly suggesting underlying portal venous hypertension without focal splenic lesion. * Gallbladder suggesting tumefactive sludge and gallstones. MTDD
== END ==
LOC: M RAD 07:52
PROVIDERS: ATTEND Internal Medicine Gastroenterology
DX: K74.60 Unspecified cirrhosis of liver (principal); R16.1 Splenomegaly, not elsewhere classified

== ENCOUNTER → 2020-07-15 | Outpatient (CLI) | payer MEDICARE | LOC: M WHC 08:23 | PROVIDERS: ATTEND Physician Assistant | DX: Z91.89 Other specified personal risk factors, not elsewhere classified (principal); Z78.0 Asymptomatic menopausal state ==

== ENCOUNTER → 2020-08-11 | Outpatient (REF) | payer MEDICARE ==
[~2020-08-11] MED LIST changes: +ACET-838 PO; -NON-325T5 PO
[2020-08-11 12:35] LABS: BASO % 0.7 % (0.0-1.0); EOS # 0.1 10^3/uL (0.0-0.5); EOS % 2.3 % (0.0-3.0); HEMATOCRIT 39.1 % (36.0-47.0); HEMOGLOBIN 12.2 g/dl (12.0-15.5); LYMPH % 32.6 % (24.0-44.0); MEAN CORPUSCULAR HEMOGLOBIN 29.3 pg (27.0-33.0); MEAN CORPUSCULAR HGB CONC 31.2 g/dl (32.0-36.5); MEAN CORPUSCULAR VOLUME 93.8 fl (80.0-96.0); MONO # 0.2 10^3/uL (0.0-0.8); MONO % 5.3 % (0.0-5.0); NEUTROPHILS # 1.8 10^3/uL (1.5-8.5); NEUTROPHILS % 58.8 % (36.0-66.0); RED BLOOD COUNT 4.17 10^6/uL (4.00-5.40)
[2020-08-11 12:39] LABS: PLATELET COUNT, AUTOMATED 67 10^3/uL (150-450)
[2020-08-11 12:50] LABS: ALBUMIN 3.3 GM/DL (3.2-5.2); BILIRUBIN,TOTAL 0.5 MG/DL (0.2-1.0); CALCIUM LEVEL 8.2 MG/DL (8.8-10.2); CHOLESTEROL RISK RATIO 3.543 (<5); FREE T4 1.43 NG/DL (0.76-1.46); GLOMERULAR FILTRATION RATE 59.2 (>45); POTASSIUM SERUM 4.1 MEQ/L (3.5-5.1); THYROID STIMULATING HORMONE 0.722 uIU/ML (0.358-3.740); TOTAL PROTEIN 5.8 GM/DL (6.4-8.2)
== END ==
LOC: M SFHCCLAY 09:31
PROVIDERS: ATTEND Physician Assistant
DX: I11.9 Hypertensive heart disease without heart failure (principal); E03.9 Hypothyroidism, unspecified; E78.5 Hyperlipidemia, unspecified

== ENCOUNTER → 2020-08-26 | Outpatient (CLI) | payer MEDICARE ==
--- NOTE | 2020-08-26 13:52 | REPMRS ---
Patient History The patient states she had a clinical breast exam in 07/2020. No known family history of cancer. No Hormone Replacement Therapy 3D TOMOSYNTHESIS WAS PERFORMED. The Erinn To lifetime risk for breast cancer is 7.6%. Volpara breast density a. Digital Woman Screen Mammo: August 26, 2020 - Exam #: [id number] Bilateral CC and MLO view(s) were taken. Technologist: Savannah Wilson, Technologist Prior study comparison: August 24, 2019, bilateral digital woman screen mammo performed at [facility] [place]. July 12, 2018, bilateral digital mammo screening bilat, performed at [facility]. FINDINGS: There are scattered fibroglandular densities. There has been no change in the appearance of the mammogram from the prior studies. There is a mild amount of residual fibroglandular tissue which is fairly symmetric. There is no interval development of dominant mass, architectural distortion, or clustered microcalcification suggestive of malignancy. Assessment: BI-RADS/ACR category 1 mammogram. Negative Mammogram. Recommendation Routine screening mammogram in 1 year (for women over age 40). This mammogram was interpreted with the aid of an FDA-approved computer-aided dectection system. Electronically Signed By: Johnathon Allred MD 08/26/20 [id number]
== END ==
LOC: M WHC 12:38
PROVIDERS: ATTEND Physician Assistant
DX: Z12.31 Encounter for screening mammogram for malignant neoplasm of breast (principal)

== ENCOUNTER → 2020-10-01 | Outpatient (CLI) | payer MEDICARE ==
--- NOTE | 2020-10-01 17:15 | REP ---
INDICATION: M25.562 ACUTE PAIN OF LEFT KNEE COMPARISON: None. TECHNIQUE: AP, lateral, bilateral oblique and sunrise views. FINDINGS: Relatively mild tricompartmental osteoarthritic degenerative changes are appreciated. Findings include increased sclerosis and minimal joint space narrowing along the medial compartment and the patellofemoral compartment as well as fraying along the anterior margin of the patella with associated osteophyte formation. No acute fracture or dislocation. No effusion. IMPRESSION: Relatively mild tricompartmental osteoarthritic degenerative changes. <Electronically signed by Jarvis Chavez > 10/01/20 [id number]
== END ==
LOC: M CLY 14:12
PROVIDERS: ATTEND Physician Assistant
DX: M17.12 Unilateral primary osteoarthritis, left knee (principal); M25.562 Pain in left knee

== ENCOUNTER → 2020-10-01 | Outpatient (CLI) | payer MEDICARE ==
--- NOTE | 2020-10-01 17:50 | REPVR ---
PROCEDURE INFORMATION: Exam: US Duplex Left Lower Extremity Veins, Limited Exam date and time: 10/01/2020 5:38 PM Age: 64 years old Clinical indication: Pain; Leg, lower; Left; Additional info: Left leg pain TECHNIQUE: Imaging protocol: Real-time Duplex ultrasound of the Left Lower Extremity with 2-D rdz scale, color Doppler flow and spectral waveform analysis with image documentation. Limited exam focused on the left lower extremity veins. COMPARISON: No relevant prior studies available. FINDINGS: Left deep veins: Unremarkable. The common femoral, femoral, proximal profunda femoral and popliteal veins are patent without thrombus. Normal Doppler waveforms. Normal compressibility and/or augmentation response. Left superficial veins: Unremarkable. Saphenofemoral junction is patent without thrombus. Soft tissues: Small collapsed popliteal cyst 3 cm in length by 5 mm in thickness. IMPRESSION: No evidence of deep vein thrombosis. Electronically signed by: Jimmy Varghese On 10/01/2020 17:50:46 PM
== END ==
LOC: M RAD 15:27
PROVIDERS: ATTEND Physician Assistant
DX: M71.22 Synovial cyst of popliteal space [Baker], left knee (principal); M79.605 Pain in left leg; M17.12 Unilateral primary osteoarthritis, left knee; M25.562 Pain in left knee
CPT/HCPCS: 73564; 93971; G0463

== ENCOUNTER → 2020-12-04 | Outpatient (CLI) | payer MEDICARE ==
[~2020-12-04] MED LIST changes: -ACET-838 PO; +ACET32TAB PO
--- NOTE | 2020-12-04 09:27 | REP ---
INDICATION: FATTY LIVER. COMPARISON: 05/05/2020 TECHNIQUE: Intercostal scanning FINDINGS: Multiple ultrasonographic images of the liver show diffuse increase echoes throughout the hepatic parenchyma without evidence of a mass or ductal dilatation. The common bile duct measures 5 mm in its greatest transverse dimension. Multiple ultrasonographic images of the gallbladder show multiple echogenic foci within the gallbladder lumen which casts acoustic shadows. There is no gallbladder wall thickening or pericholecystic edema. Images of the pancreatic region show no gross abnormality. The imaged portion of the right kidney is unremarkable. IMPRESSION: Cholelithiasis and increased hepatic parenchymal echoes essentially unchanged from the prior exam and again consistent with the patient's clinical diagnosis of cirrhosis. Accredited by the [employer] in General Ultrasound. <Electronically signed by Robert Grewal > 12/04/20 [id number]
== END ==
LOC: M RAD 08:24
PROVIDERS: ATTEND Internal Medicine Gastroenterology
DX: K76.0 Fatty (change of) liver, not elsewhere classified (principal); K80.20 Calculus of gallbladder without cholecystitis without obstruction; K74.60 Unspecified cirrhosis of liver

== ENCOUNTER → 2020-12-23 | Outpatient (REF) | payer MEDICARE ==
[2020-12-23 16:17] LABS: BASO % 0.7 % (0.0-1.0); EOS # 0.1 10^3/uL (0.0-0.5); EOS % 2.2 % (0.0-3.0); HEMATOCRIT 40.5 % (36.0-47.0); HEMOGLOBIN 13.3 g/dl (12.0-15.5); LYMPH # 1.4 10^3/uL (1.5-5.0); LYMPH % 30.7 % (24.0-44.0); MEAN CORPUSCULAR HEMOGLOBIN 30.9 pg (27.0-33.0); MEAN CORPUSCULAR HGB CONC 32.8 g/dl (32.0-36.5); MEAN CORPUSCULAR VOLUME 94.2 fl (80.0-96.0); MONO # 0.3 10^3/uL (0.0-0.8); MONO % 6.5 % (2.0-8.0); NEUTROPHILS # 2.8 10^3/uL (1.5-8.5); NEUTROPHILS % 59.7 % (36.0-66.0); PLATELET COUNT, AUTOMATED 77 10^3/uL (150-450); WHITE BLOOD COUNT 4.6 10^3/uL (4.0-10.0)
[2020-12-23 16:25] LABS: INR 1.04; PROTHROMBIN TIME 13.8 SECONDS (12.5-14.3)
[2020-12-23 16:26] LABS: PARTIAL THROMBOPLASTIN TIME 29.9 SECONDS (24.2-38.5)
== END ==
LOC: M LABDRWCV 15:40
PROVIDERS: ATTEND Internal Medicine Gastroenterology
DX: K74.60 Unspecified cirrhosis of liver (principal); K31.7 Polyp of stomach and duodenum

== ENCOUNTER → 2021-01-28 | Outpatient (CLI) | payer MEDICARE | LOC: M LABSMTC 11:55 | PROVIDERS: ATTEND Anesthesiology | DX: Z01.812 Encounter for preprocedural laboratory examination (principal); Z20.822 Contact with and (suspected) exposure to COVID-19 ==

== ENCOUNTER 2021-02-02 09:46 | Day surgery (SDC) | payer MEDICARE ==
[~2021-02-02] VITALS: Ht 147.3 cm; Wt 79.4 kg
[~2021-02-02 09:46] MED LIST changes: +FLAX10002 PO; +FOLI1TAB11 PO; +LIVER AID PO; +NO ITAB PO; +NS 1,000 ML IV ONE
[2021-02-02] MEDS ORDERED: LIDOCAINE 2% 100MG/5ML SDV (FOR ANES.) As Ordered ONE (12:33)
[2021-02-02] MEDS ORDERED: propofoL 200 MG/20 ML VIAL As Ordered ONE ×2 (12:33→12:50)
--- NOTE | 2021-02-02 13:08 | ROOR ---
Patient Name: Brooklynn Jaramillo Procedure Date: 02/02/2021 12:29 PM Date of : 1955 Age: 65 Room: [facility] Gender: Female Note Status: Finalized Procedure: Colonoscopy Indications: High risk colon cancer surveillance: Personal history of colonic polyps Providers: Mehul Daily MD Referring MD: NIKKIE Parks [id number] Requesting Provider: Medicines: Monitored Anesthesia Care Complications: No immediate complications. Procedure: Pre-Anesthesia Assessment: - Prior to the procedure, a History and Physical was performed, and patient medications and allergies were reviewed. The patient is competent. The risks and benefits of the procedure and the sedation options and risks were discussed with the patient. All questions were answered and informed consent was obtained. Patient identification and proposed procedure were verified by the physician, the nurse and the anesthesiologist in the procedure room. Mental Status Examination: alert and oriented. Airway Examination: normal oropharyngeal airway and neck mobility. Respiratory Examination: clear to auscultation. CV Examination: normal. Prophylactic Antibiotics: The patient does not require prophylactic antibiotics. Prior Anticoagulants: The patient has taken no previous anticoagulant or antiplatelet agents. ASA Grade Assessment: III - A patient with severe systemic disease. After reviewing the risks and benefits, the patient was deemed in satisfactory condition to undergo the procedure. The anesthesia plan was to use monitored anesthesia care (MAC). Immediately prior to administration of medications, the patient was re-assessed for adequacy to receive sedatives. The heart rate, respiratory rate, oxygen saturations, blood pressure, adequacy of pulmonary ventilation, and response to care were monitored throughout the procedure. The physical status of the patient was re-assessed after the procedure. The Colonoscope was introduced through the anus and advanced to the terminal ileum, with identification of the appendiceal orifice and IC valve. The colonoscopy was performed without difficulty. The patient tolerated the procedure well. The quality of the bowel preparation was good. The terminal ileum, ileocecal valve, appendiceal orifice, and rectum were photographed. Scope insertion time was 2 minutes. Scope withdrawal time was 8 minutes. The total duration of the procedure was 12 minutes. Findings: The perianal and digital rectal examinations were normal. Two sessile polyps were found in the transverse colon. The polyps were 4 to 12 mm in size. These polyps were removed with a hot snare. Resection and retrieval were complete. Verification of patient identification for the specimen was done by the physician and nurse using the patient's name, date and medical record number. To close a defect after polypectomy, one hemostatic clip was successfully placed. There was no bleeding at the end of the procedure. Non-bleeding external and internal hemorrhoids were found during retroflexion. The hemorrhoids were medium-sized. Impression: - Two 4 to 12 mm polyps in the transverse colon, removed with a hot snare. Resected and retrieved. Clip was placed. - Non-bleeding external and internal hemorrhoids. Recommendation: - Patient has a contact number available for emergencies. The signs and symptoms of potential delayed complications were discussed with the patient. Return to normal activities tomorrow. Written discharge instructions were provided to the patient. - High fiber diet. - Continue present medications. - Await pathology results. - Repeat colonoscopy in 3 - 5 years for surveillance based on pathology results. - Telephone GI clinic for pathology results in 2 weeks. - Return to primary care physician. Procedure Code(s): --- Professional --- 53051, Colonoscopy, flexible; with removal of tumor(s), polyp(s), or other lesion(s) by snare technique Diagnosis Code(s): --- Professional --- Z86.010, Personal history of colonic polyps K63.5, Polyp of colon K64.8, Other hemorrhoids CPT copyright 2019 [employer]. All rights reserved. The codes documented in this report are preliminary and upon overhead cleaner maintainer review may be revised to meet current compliance requirements. Mehul Daily MD Mehul Daily MD 02/02/2021 1:07:37 PM Electronically signed by Mehul Daily MD Number of Addenda: 0 Note Initiated On: 02/02/2021 12:29 PM Estimated Blood Loss: Estimated blood loss was minimal.
[2021-02-02 13:28] VITALS: BP 125/55
== END 2021-02-02 13:44 | disposition home or self-care (01) ==
LOC: M OPP 09:46
PROVIDERS: ATTEND Internal Medicine Gastroenterology
DX: Z12.11 Encounter for screening for malignant neoplasm of colon (principal); Z86.010 Personal history of colon polyps; D12.6 Benign neoplasm of colon, unspecified; K64.8 Other hemorrhoids; K74.60 Unspecified cirrhosis of liver; Z79.899 Other long term (current) drug therapy

== ENCOUNTER → 2021-05-12 | Outpatient (REF) | payer MEDICARE ==
[~2021-05-12] MED LIST changes: +FURO20TA2 PO; -NS 1,000 ML IV ONE; +OMEP40CA4 PO; -OMEP40CA97 PO; +PROP20TA72 PO; +[UNRECOGNIZED DRUG - OTHER]
[2021-05-12 16:48] LABS: APPEARANCE, URINE CLEAR (CLEAR); BILIRUBIN, URINE AUTO NEGATIVE (NEGATIVE); BLOOD, URINE BLOOD 3+ (NEGATIVE); COLOR, URINE YELLOW (YELLOW); GLUCOSE, URINE (UA) AUTO NEGATIVE (NEGATIVE); KETONE, URINE AUTO NEGATIVE (NEGATIVE); LEUKOCYTE ESTERASE, URINE AUTO NEGATIVE (NEGATIVE); NITRITE, URINE AUTO NEGATIVE (NEGATIVE); PROTEIN, URINE AUTO NEGATIVE (NEGATIVE); SPECIFIC GRAVITY URINE AUTO 1.009 (1.002-1.035); UROBILINOGEN, URINE AUTO 0.2 mg/dL (0.0-2.0)
[2021-05-12 16:56] LABS: BACTERIA, URINE AUTO NEGATIVE (NEGATIVE); RBC, URINE AUTO 77 /HPF (0-3); SQUAMOUS EPITHELIAL CELL UR AU 0 /HPF (0-6); WBC, URINE AUTO 3 /HPF (0-3)
== END ==
LOC: M SFHCCAPE 11:45
PROVIDERS: ATTEND Physician Assistant
DX: R35.0 Frequency of micturition (principal)

== ENCOUNTER → 2021-05-26 | Outpatient (REF) | payer MEDICARE ==
[2021-05-26 16:02] LABS: BASO % 0.6 % (0.0-1.0); EOS # 0.1 10^3/uL (0.0-0.5); EOS % 1.6 % (0.0-3.0); HEMATOCRIT 41.6 % (36.0-47.0); HEMOGLOBIN 13.7 g/dl (12.0-15.5); LYMPH # 1.5 10^3/uL (1.5-5.0); LYMPH % 30.6 % (24.0-44.0); MEAN CORPUSCULAR HEMOGLOBIN 30.7 pg (27.0-33.0); MEAN CORPUSCULAR HGB CONC 32.9 g/dl (32.0-36.5); MEAN CORPUSCULAR VOLUME 93.3 fl (80.0-96.0); MONO # 0.4 10^3/uL (0.0-0.8); MONO % 7.7 % (2.0-8.0); NEUTROPHILS # 2.9 10^3/uL (1.5-8.5); NEUTROPHILS % 59.3 % (36.0-66.0); RED BLOOD COUNT 4.46 10^6/uL (4.00-5.40); WHITE BLOOD COUNT 4.9 10^3/uL (4.0-10.0)
[2021-05-26 16:03] LABS: APPEARANCE, URINE CLEAR (CLEAR); BACTERIA, URINE AUTO NEGATIVE (NEGATIVE); BILIRUBIN, URINE AUTO NEGATIVE (NEGATIVE); BLOOD, URINE BLOOD NEGATIVE (NEGATIVE); COLOR, URINE YELLOW (YELLOW); GLUCOSE, URINE (UA) AUTO NEGATIVE (NEGATIVE); KETONE, URINE AUTO NEGATIVE (NEGATIVE); LEUKOCYTE ESTERASE, URINE AUTO NEGATIVE (NEGATIVE); MUCUS, URINE SMALL (NEGATIVE); NITRITE, URINE AUTO NEGATIVE (NEGATIVE); PROTEIN, URINE AUTO NEGATIVE (NEGATIVE); RBC, URINE AUTO 0 /HPF (0-3); SPECIFIC GRAVITY URINE AUTO 1.006 (1.002-1.035); SQUAMOUS EPITHELIAL CELL UR AU 0 /HPF (0-6); UROBILINOGEN, URINE AUTO 0.2 mg/dL (0.0-2.0); WBC, URINE AUTO 1 /HPF (0-3)
[2021-05-26 17:04] LABS: PLATELET COUNT, AUTOMATED 76 10^3/uL (150-450)
[2021-05-26 18:23] LABS: ALBUMIN 3.8 GM/DL (3.2-5.2); BILIRUBIN,TOTAL 0.6 MG/DL (0.2-1.0); CALCIUM LEVEL 9.4 MG/DL (8.8-10.2); CHOLESTEROL RISK RATIO 3.237 (<5); GLOMERULAR FILTRATION RATE 59.1 (>45); POTASSIUM SERUM 4.2 MEQ/L (3.5-5.1); THYROID STIMULATING HORMONE 0.058 uIU/ML (0.358-3.740); TOTAL PROTEIN 6.7 GM/DL (6.4-8.2)
== END ==
LOC: M SFHCCAPE 10:45
PROVIDERS: ATTEND Physician Assistant
DX: I11.9 Hypertensive heart disease without heart failure (principal); R82.90 Unspecified abnormal findings in urine; Z79.899 Other long term (current) drug therapy

== ENCOUNTER → 2021-05-28 | Outpatient (CLI) | payer MEDICARE ==
--- NOTE | 2021-05-28 15:37 | REP ---
INDICATION: DEQUERVAINS TENOSYNOVITIS R WRIST PAIN COMPARISON: None. TECHNIQUE: AP and lateral views right wrist FINDINGS: Generalized age-related osteopenia and mild degenerative changes are appreciated. Specifically, there is mild subchondral sclerosis and joint space narrowing involving the radiocarpal joint line with subtle cortical irregularity/spurring along the lateral aspect of the radius. No significant chondrocalcinosis or cortical erosive changes are identified. No evidence for acute fracture. IMPRESSION: Relatively mild degenerative changes. <Electronically signed by Jarvis Chavez > 05/28/21 [id number]
--- NOTE | 2021-05-28 15:39 | REP ---
INDICATION: DEQUERVAINS TENOSYNOVITIS R WRIST PAIN COMPARISON: None. TECHNIQUE: AP, lateral, bilateral oblique views right hand. FINDINGS: Mild age-related degenerative changes primarily involving the interphalangeal joints includes subchondral sclerosis, minimal joint space narrowing, and subtle marginal spurring. No periarticular soft tissue swelling, loose bodies/chondrocalcinosis or erosive changes. No acute fracture or dislocation. IMPRESSION: Relatively mild age-related arthritic changes <Electronically signed by Jarvis Chavez > 05/28/21 [id number]
== END ==
LOC: M CLY 15:08
PROVIDERS: ATTEND Physician Assistant
DX: M19.031 Primary osteoarthritis, right wrist (principal); M65.4 Radial styloid tenosynovitis [de Quervain]; M25.531 Pain in right wrist

== ENCOUNTER → 2021-07-03 | Outpatient (CLI) | payer MEDICARE ==
--- NOTE | 2021-07-03 09:23 | REP ---
INDICATION: CIRRHOSIS. COMPARISON: 12/04/2020 TECHNIQUE: Real-time sonographic evaluation of the right upper quadrant with Doppler FINDINGS: Multiple ultrasonographic images of the liver show diffuse increase echoes throughout the hepatic parenchyma without evidence of a mass or ductal dilatation. The common bile duct measures 5 mm in its greatest transverse dimension. Multiple ultrasonographic images of the gallbladder show multiple echogenic foci within the gallbladder lumen which casts acoustic shadows. There is no gallbladder wall thickening or pericholecystic edema. Images of the pancreatic region show no gross abnormality. The imaged portion of the right kidney is unremarkable. IMPRESSION: No change from the prior exam. Coarsened hepatic echo-pattern and cholelithiasis status quo. Accredited by the [employer] in General Ultrasound. <Electronically signed by Robert Grewal > 07/03/21 [id number]
== END ==
LOC: M RAD 07:24
PROVIDERS: ATTEND Physician Assistant
DX: K74.60 Unspecified cirrhosis of liver (principal)

== ENCOUNTER → 2021-07-14 | Outpatient (REF) | payer MEDICARE ==
[2021-07-14 16:50] LABS: ALBUMIN 3.6 GM/DL (3.2-5.2); ALT/SGPT 46 U/L (12-78); BILIRUBIN,TOTAL 0.4 MG/DL (0.2-1.0); BLOOD UREA NITROGEN 24 MG/DL (7-18); CALCIUM LEVEL 8.8 MG/DL (8.8-10.2); CARBON DIOXIDE LEVEL 25 MEQ/L (21-32); CHLORIDE LEVEL 110 MEQ/L (98-107); CREATININE FOR GFR 0.83 MG/DL (0.55-1.30); FREE T4 1.39 NG/DL (0.76-1.46); GLOMERULAR FILTRATION RATE > 60.0 (>45); GLUCOSE, FASTING 103 MG/DL (70-100); SODIUM LEVEL 143 MEQ/L (136-145); THYROID STIMULATING HORMONE 0.965 uIU/ML (0.358-3.740); TOTAL PROTEIN 6.3 GM/DL (6.4-8.2)
== END ==
LOC: M SFHCCAPE 08:47
PROVIDERS: ATTEND Physician Assistant
DX: K74.60 Unspecified cirrhosis of liver (principal); Z79.899 Other long term (current) drug therapy

== ENCOUNTER → 2021-08-03 | Outpatient (CLI) | payer MEDICARE | LOC: M WHC 10:16 | PROVIDERS: ATTEND Obstetrics & Gynecology | DX: Z12.31 Encounter for screening mammogram for malignant neoplasm of breast (principal); Z53.9 Procedure and treatment not carried out, unspecified reason ==

== ENCOUNTER → 2021-09-30 | Outpatient (CLI) | payer MEDICARE ==
[~2021-09-30] MED LIST changes: +LOSA100T45 PO; -LOSA100T50 PO
== END ==
LOC: M WHC 12:04
PROVIDERS: ATTEND Obstetrics & Gynecology
DX: Z12.31 Encounter for screening mammogram for malignant neoplasm of breast (principal); R92.2 Inconclusive mammogram

== ENCOUNTER → 2022-01-19 | Outpatient (REF) | payer MEDICARE ==
[~2022-01-19] MED LIST changes: +CENT1TAB PO; +LEVO150T7 PO; +MICO2CRE7 VA; +THIA100TA PO
[2022-01-19 16:08] LABS: BASO % 0.6 % (0.0-1.0); EOS # 0.1 10^3/uL (0.0-0.5); HEMATOCRIT 40.6 % (36.0-47.0); HEMOGLOBIN 13.4 g/dl (12.0-15.5); LYMPH % 30.1 % (24.0-44.0); MEAN CORPUSCULAR HEMOGLOBIN 31.6 pg (27.0-33.0); MEAN CORPUSCULAR VOLUME 95.8 fl (80.0-96.0); MONO # 0.3 10^3/uL (0.0-0.8); MONO % 7.6 % (2.0-8.0); NEUTROPHILS % 59.7 % (36.0-66.0); RED BLOOD COUNT 4.24 10^6/uL (4.00-5.40); WHITE BLOOD COUNT 3.4 10^3/uL (4.0-10.0)
[2022-01-19 16:41] LABS: HEMOGLOBIN A1c 5.3 %
[2022-01-19 16:47] LABS: PLATELET COUNT, AUTOMATED 62 10^3/uL (150-450)
[2022-01-19 16:49] LABS: ALBUMIN 3.5 GM/DL (3.2-5.2); ALT/SGPT 46 U/L (12-78); BILIRUBIN,TOTAL 0.6 MG/DL (0.2-1.0); BLOOD UREA NITROGEN 18 MG/DL (7-18); CALCIUM LEVEL 8.3 MG/DL (8.8-10.2); CARBON DIOXIDE LEVEL 26 MEQ/L (21-32); CHLORIDE LEVEL 111 MEQ/L (98-107); CHOLESTEROL LEVEL 156 MG/DL (<200); CREATININE FOR GFR 0.88 MG/DL (0.55-1.30); GLOMERULAR FILTRATION RATE > 60.0 (>45); GLUCOSE, FASTING 103 MG/DL (70-100); HDL CHOLESTEROL 50 MG/DL (>40); LDL CHOLESTEROL 69 MG/DL (<100); NON-HDL-C 106 MG/DL; POTASSIUM SERUM 4.1 MEQ/L (3.5-5.1); SODIUM LEVEL 141 MEQ/L (136-145); TOTAL 25(OH) VITAMIN D 34.6 NG/ML (30.0-100.0); TOTAL PROTEIN 6.2 GM/DL (6.4-8.2); TRIGLYCERIDES LEVEL 187 MG/DL (<150)
== END ==
LOC: M SFHCCAPE 08:31
PROVIDERS: ATTEND Physician Assistant
DX: E03.9 Hypothyroidism, unspecified (principal); I11.9 Hypertensive heart disease without heart failure; E78.5 Hyperlipidemia, unspecified; K74.60 Unspecified cirrhosis of liver; Z79.899 Other long term (current) drug therapy

== ENCOUNTER 2022-01-30 13:44 | Emergency (ER) | payer MEDICARE, OTHER ==
[~2022-01-30] VITALS: Ht 147.3 cm; Wt 87.3 kg
[2022-01-30] MEDS ORDERED: LIDOCAINE 5% (LIDODERM) PATCH TD ONE (15:40)
[2022-01-30] MEDS ORDERED: TRAM50TA2 PO (16:05)
[2022-01-30 16:13] VITALS: BP 118/63
[2022-01-30] MEDS ORDERED: **NOTE PATIENT COMMENT** MISC XX SCH (21:00)
== END 2022-01-30 16:21 | disposition home or self-care (01) ==
LOC: EDBD 13:44 → M ED 13:44
DX: S22.32XA Fracture of one rib, left side, initial encounter for closed fracture (principal); R22.31 Localized swelling, mass and lump, right upper limb; V43.62XA Car passenger injured in collision with other type car in traffic accident, initial encounter; I10 Essential (primary) hypertension; M19.031 Primary osteoarthritis, right wrist; M19.041 Primary osteoarthritis, right hand; Z79.890 Hormone replacement therapy; Z79.899 Other long term (current) drug therapy

== ENCOUNTER → 2022-03-08 | Outpatient (REF) | payer MEDICARE ==
[~2022-03-08] MED LIST changes: +TRAM50TA2 PO
[2022-03-08 16:08] LABS: BASO % 0.8 % (0.0-1.0); EOS # 0.1 10^3/uL (0.0-0.5); EOS % 2.3 % (0.0-3.0); HEMATOCRIT 39.6 % (36.0-47.0); HEMOGLOBIN 13.3 g/dl (12.0-15.5); LYMPH # 1.2 10^3/uL (1.5-5.0); LYMPH % 29.9 % (24.0-44.0); MEAN CORPUSCULAR HEMOGLOBIN 31.2 pg (27.0-33.0); MEAN CORPUSCULAR HGB CONC 33.6 g/dl (32.0-36.5); MONO # 0.3 10^3/uL (0.0-0.8); MONO % 6.4 % (2.0-8.0); NEUTROPHILS # 2.3 10^3/uL (1.5-8.5); NEUTROPHILS % 60.3 % (36.0-66.0); RED BLOOD COUNT 4.26 10^6/uL (4.00-5.40); WHITE BLOOD COUNT 3.9 10^3/uL (4.0-10.0)
[2022-03-08 16:15] LABS: PLATELET COUNT, AUTOMATED 71 10^3/uL (150-450)
[2022-03-08 16:38] LABS: ALBUMIN 3.6 GM/DL (3.2-5.2); ALT/SGPT 45 U/L (12-78); BILIRUBIN,TOTAL 0.6 MG/DL (0.2-1.0); BLOOD UREA NITROGEN 19 MG/DL (7-18); CALCIUM LEVEL 8.6 MG/DL (8.8-10.2); CARBON DIOXIDE LEVEL 23 MEQ/L (21-32); CHLORIDE LEVEL 112 MEQ/L (98-107); CREATININE FOR GFR 0.92 MG/DL (0.55-1.30); GLOMERULAR FILTRATION RATE > 60.0 (>45); GLUCOSE, FASTING 116 MG/DL (70-100); SODIUM LEVEL 144 MEQ/L (136-145); TOTAL PROTEIN 6.5 GM/DL (6.4-8.2)
== END ==
LOC: M SFHCCAPE 08:16
PROVIDERS: ATTEND Physician Assistant
DX: D69.6 Thrombocytopenia, unspecified (principal)

== ENCOUNTER → 2022-03-24 | Outpatient (REF) | payer MEDICARE ==
[2022-03-24 17:40] LABS: BASO % 0.6 % (0.0-1.0); EOS # 0.1 10^3/uL (0.0-0.5); EOS % 2.2 % (0.0-3.0); HEMATOCRIT 40.4 % (36.0-47.0); LYMPH # 0.9 10^3/uL (1.5-5.0); LYMPH % 28.3 % (24.0-44.0); MEAN CORPUSCULAR HEMOGLOBIN 30.7 pg (27.0-33.0); MEAN CORPUSCULAR HGB CONC 32.2 g/dl (32.0-36.5); MEAN CORPUSCULAR VOLUME 95.3 fl (80.0-96.0); MONO # 0.2 10^3/uL (0.0-0.8); MONO % 6.2 % (2.0-8.0); NEUTROPHILS % 62.4 % (36.0-66.0); RED BLOOD COUNT 4.24 10^6/uL (4.00-5.40); WHITE BLOOD COUNT 3.3 10^3/uL (4.0-10.0)
[2022-03-24 17:48] LABS: PLATELET COUNT, AUTOMATED 66 10^3/uL (150-450)
[2022-03-24 18:31] LABS: ALBUMIN 3.5 GM/DL (3.2-5.2); ALT/SGPT 50 U/L (12-78); BILIRUBIN,DIRECT 0.2 MG/DL (0.0-0.2); BILIRUBIN,TOTAL 0.5 MG/DL (0.2-1.0); BLOOD UREA NITROGEN 23 MG/DL (7-18); CREATININE FOR GFR 0.89 MG/DL (0.55-1.30); GLOMERULAR FILTRATION RATE > 60.0 (>45); TOTAL PROTEIN 6.3 GM/DL (6.4-8.2)
== END ==
LOC: M LABDRWCV 17:04
PROVIDERS: ATTEND Internal Medicine Gastroenterology
DX: K74.60 Unspecified cirrhosis of liver (principal); K76.0 Fatty (change of) liver, not elsewhere classified; K31.89 Other diseases of stomach and duodenum

== ENCOUNTER → 2022-03-25 | Outpatient (CLI) | payer MEDICARE | LOC: M RAD 07:03 | PROVIDERS: ATTEND Physician Assistant | DX: K74.60 Unspecified cirrhosis of liver (principal); K76.0 Fatty (change of) liver, not elsewhere classified; K80.20 Calculus of gallbladder without cholecystitis without obstruction ==

== ENCOUNTER → 2022-04-23 | Outpatient (CLI) | payer MEDICARE, OTHER | LOC: M CLY 09:59 | PROVIDERS: ATTEND Physician Assistant | DX: S22.32XS Fracture of one rib, left side, sequela (principal) ==

== ENCOUNTER → 2022-05-04 | Outpatient (REF) | payer MEDICARE ==
[2022-05-04 18:14] LABS: BASO % 0.6 % (0.0-1.0); EOS # 0.1 10^3/uL (0.0-0.5); EOS % 2.4 % (0.0-3.0); HEMATOCRIT 40.7 % (36.0-47.0); HEMOGLOBIN 13.1 g/dl (12.0-15.5); LYMPH # 1.1 10^3/uL (1.5-5.0); LYMPH % 31.2 % (24.0-44.0); MEAN CORPUSCULAR HEMOGLOBIN 31.3 pg (27.0-33.0); MEAN CORPUSCULAR HGB CONC 32.2 g/dl (32.0-36.5); MEAN CORPUSCULAR VOLUME 97.1 fl (80.0-96.0); MONO # 0.2 10^3/uL (0.0-0.8); MONO % 6.5 % (2.0-8.0); RED BLOOD COUNT 4.19 10^6/uL (4.00-5.40); WHITE BLOOD COUNT 3.4 10^3/uL (4.0-10.0)
[2022-05-04 18:37] LABS: PLATELET COUNT, AUTOMATED 64 10^3/uL (150-450)
[2022-05-04 19:45] LABS: ALBUMIN 3.6 GM/DL (3.2-5.2); ALT/SGPT 48 U/L (12-78); BILIRUBIN,TOTAL 0.5 MG/DL (0.2-1.0); BLOOD UREA NITROGEN 27 MG/DL (7-18); CALCIUM LEVEL 8.9 MG/DL (8.8-10.2); CARBON DIOXIDE LEVEL 25 MEQ/L (21-32); CHLORIDE LEVEL 109 MEQ/L (98-107); CREATININE FOR GFR 0.92 MG/DL (0.55-1.30); GLOMERULAR FILTRATION RATE > 60.0 (>45); GLUCOSE, FASTING 114 MG/DL (70-100); NT-PRO BNP 92 PG/ML (<125); POTASSIUM SERUM 4.2 MEQ/L (3.5-5.1); SODIUM LEVEL 140 MEQ/L (136-145); TOTAL PROTEIN 6.3 GM/DL (6.4-8.2)
== END ==
LOC: M SFHCCAPE 08:28
PROVIDERS: ATTEND Physician Assistant
DX: R06.02 Shortness of breath (principal)

== ENCOUNTER → 2022-05-06 | Outpatient (CLI) | payer MEDICARE | LOC: M CLY 10:35 | PROVIDERS: ATTEND Physician Assistant | DX: R06.02 Shortness of breath (principal) ==

== ENCOUNTER → 2022-06-16 | Outpatient (REF) | payer MEDICARE | LOC: M LABDRWCV 17:05 | PROVIDERS: ATTEND Internal Medicine Cardiovascular Disease | DX: R06.02 Shortness of breath (principal) ==

== ENCOUNTER → 2022-07-06 | Outpatient (CLI) | payer MEDICARE | LOC: M CARPUL 07:48 | PROVIDERS: ATTEND Internal Medicine Cardiovascular Disease | DX: R06.02 Shortness of breath (principal); R00.1 Bradycardia, unspecified; I35.8 Other nonrheumatic aortic valve disorders ==

== ENCOUNTER → 2022-11-02 | Outpatient (REF) | payer MEDICARE ==
[2022-11-02 17:41] LABS: ALBUMIN 3.5 G/DL (3.2-5.2); ALKALINE PHOSPHATASE 110 U/L (46-116); ALT/SGPT 41 U/L (7.0-40); AST/SGOT 53 U/L (<34); BILIRUBIN,DIRECT 0.2 MG/DL (<0.4); BILIRUBIN,TOTAL 0.4 MG/DL (0.3-1.2); BLOOD UREA NITROGEN 27 MG/DL (9-23); CREATININE FOR GFR 0.82 MG/DL (0.55-1.30); GLOMERULAR FILTRATION RATE > 60.0 (>45); TOTAL PROTEIN 5.8 G/DL (5.7-8.2)
== END ==
LOC: M LABDRWCV 16:46
PROVIDERS: ATTEND Internal Medicine Gastroenterology
DX: K74.60 Unspecified cirrhosis of liver (principal); K76.0 Fatty (change of) liver, not elsewhere classified

== ENCOUNTER → 2022-11-05 | Outpatient (REF) | payer MEDICARE | LOC: M PLALAB 16:23 | PROVIDERS: ATTEND Nurse Practitioner Family | DX: Z12.4 Encounter for screening for malignant neoplasm of cervix (principal); N95.8 Other specified menopausal and perimenopausal disorders | CPT/HCPCS: 87624; G0123 ==

== ENCOUNTER → 2022-11-05 | Outpatient (CLI) | payer MEDICARE | LOC: M WHC 13:34 | PROVIDERS: ATTEND Nurse Practitioner Family | DX: Z12.31 Encounter for screening mammogram for malignant neoplasm of breast (principal) ==

== ENCOUNTER → 2022-12-02 | Outpatient (CLI) | payer MEDICARE ==
[~2022-12-02] MED LIST changes: +PROHANCE 279.3MG/ML 15ML VIAL ONE; +PROHANCE 279.3MG/ML 5ML VIAL ONE
== END ==
LOC: M PLAIMG 10:04
PROVIDERS: ATTEND Internal Medicine Gastroenterology
DX: K74.60 Unspecified cirrhosis of liver (principal); R16.1 Splenomegaly, not elsewhere classified; K80.20 Calculus of gallbladder without cholecystitis without obstruction
CPT/HCPCS: 74183; A9576

== ENCOUNTER → 2023-03-21 | Outpatient (REF) | payer MEDICARE ==
[~2023-03-21] MED LIST changes: -LOSA100T45 PO; +LOSA100T46 PO; -PROHANCE 279.3MG/ML 15ML VIAL ONE; -PROHANCE 279.3MG/ML 5ML VIAL ONE
[2023-03-21 17:22] LABS: APPEARANCE, URINE CLEAR (CLEAR); BACTERIA, URINE AUTO NEGATIVE (NEGATIVE); BILIRUBIN, URINE AUTO NEGATIVE (NEGATIVE); BLOOD, URINE BLOOD 1+ (NEGATIVE); COLOR, URINE YELLOW (YELLOW); GLUCOSE, URINE (UA) AUTO NEGATIVE (NEGATIVE); KETONE, URINE AUTO NEGATIVE (NEGATIVE); LEUKOCYTE ESTERASE, URINE AUTO NEGATIVE (NEGATIVE); MUCUS, URINE SMALL (NEGATIVE); NITRITE, URINE AUTO NEGATIVE (NEGATIVE); PROTEIN, URINE AUTO NEGATIVE (NEGATIVE); RBC, URINE AUTO 18 /HPF (0-3); SPECIFIC GRAVITY URINE AUTO 1.008 (1.002-1.035); SQUAMOUS EPITHELIAL CELL UR AU 1 /HPF (0-6); UROBILINOGEN, URINE AUTO 0.2 mg/dL (0.0-2.0); WBC, URINE AUTO 11 /HPF (0-3)
== END ==
LOC: M SFHCWAGY 16:55
PROVIDERS: ATTEND Nurse Practitioner Family
DX: R39.15 Urgency of urination (principal)

== ENCOUNTER → 2023-04-28 | Outpatient (CLI) | payer MEDICARE | LOC: M CLY 12:44 | PROVIDERS: ATTEND Physician Assistant Medical | DX: M25.552 Pain in left hip (principal); M54.50 Low back pain, unspecified; M16.12 Unilateral primary osteoarthritis, left hip; M85.88 Other specified disorders of bone density and structure, other site; M25.78 Osteophyte, vertebrae; M43.27 Fusion of spine, lumbosacral region ==

== ENCOUNTER → 2023-08-12 | Outpatient (CLI) | payer MEDICARE | LOC: M RAD 09:38 | PROVIDERS: ATTEND Internal Medicine Gastroenterology | DX: K74.60 Unspecified cirrhosis of liver (principal); K80.20 Calculus of gallbladder without cholecystitis without obstruction ==

== ENCOUNTER → 2023-11-15 | Outpatient (REF) | payer MEDICARE ==
[2023-11-15 17:02] LABS: BASO % 0.4 % (0.0-1.0); EOS # 0.1 10^3/uL (0.0-0.5); EOS % 1.8 % (0.0-3.0); HEMATOCRIT 43.8 % (36.0-47.0); HEMOGLOBIN 14.6 g/dl (12.0-15.5); LYMPH # 1.3 10^3/uL (1.5-5.0); MEAN CORPUSCULAR HEMOGLOBIN 31.9 pg (27.0-33.0); MEAN CORPUSCULAR HGB CONC 33.3 g/dl (32.0-36.5); MEAN CORPUSCULAR VOLUME 95.6 fl (80.0-96.0); MONO # 0.3 10^3/uL (0.0-0.8); MONO % 5.5 % (2.0-8.0); NEUTROPHILS # 2.9 10^3/uL (1.5-8.5); NEUTROPHILS % 64.1 % (36.0-66.0); RED BLOOD COUNT 4.58 10^6/uL (4.00-5.40); WHITE BLOOD COUNT 4.6 10^3/uL (4.0-10.0)
[2023-11-15 17:03] LABS: PLATELET COUNT, AUTOMATED 77 10^3/uL (150-450)
[2023-11-15 17:12] LABS: ALBUMIN 3.6 G/DL (3.2-5.2); ALKALINE PHOSPHATASE 118 U/L (46-116); ALT/SGPT 42 U/L (7.0-40); AST/SGOT 54 U/L (<34); BILIRUBIN,DIRECT 0.2 MG/DL (<0.4); BILIRUBIN,TOTAL 0.7 MG/DL (0.3-1.2); BLOOD UREA NITROGEN 23 MG/DL (9-23); CALCIUM LEVEL 8.8 MG/DL (8.3-10.6); CARBON DIOXIDE LEVEL 28 MMOL/L (20-31); CHLORIDE LEVEL 108 MMOL/L (98-107); CREATININE FOR GFR 0.86 MG/DL (0.55-1.30); GLOMERULAR FILTRATION RATE > 60.0 (>45); GLUCOSE, FASTING 85 MG/DL (74-106); INR 1.08; PARTIAL THROMBOPLASTIN TIME 29.3 SECONDS (24.8-34.2); PROTHROMBIN TIME 13.7 SECONDS (12.5-14.5); SODIUM LEVEL 142 MMOL/L (136-145)
== END ==
LOC: M LABDRWCV 16:54
PROVIDERS: ATTEND Internal Medicine Gastroenterology
DX: K74.60 Unspecified cirrhosis of liver (principal)

== ENCOUNTER 2023-12-23 11:34 | Day surgery (SDC) | payer MEDICARE ==
[~2023-12-23] VITALS: Ht 147.3 cm; Wt 84.6 kg
[~2023-12-23 11:34] MED LIST changes: +ESTR0.1C5 TOP
[2023-12-23] MEDS: NS 1,000 ML IV ONE (12:08)
[2023-12-23] MEDS ORDERED: propofoL 200 MG/20 ML VIAL As Ordered ONE (12:46)
[2023-12-23] MEDS ORDERED: LIDOCAINE 2% 100MG/5ML SDV (FOR ANES.) As Ordered ONE (12:46)
[2023-12-23 13:41] VITALS: BP 129/59; O2SAT 96
== END 2023-12-23 13:46 | disposition home or self-care (01) ==
LOC: M OPP 11:34
PROVIDERS: ATTEND Internal Medicine Gastroenterology
DX: Z12.11 Encounter for screening for malignant neoplasm of colon (principal); D12.4 Benign neoplasm of descending colon; D12.3 Benign neoplasm of transverse colon; K74.60 Unspecified cirrhosis of liver; I85.10 Secondary esophageal varices without bleeding; D12.2 Benign neoplasm of ascending colon; K64.8 Other hemorrhoids; K64.4 Residual hemorrhoidal skin tags; K29.60 Other gastritis without bleeding; Z86.010 Personal history of colon polyps; I10 Essential (primary) hypertension; E78.00 Pure hypercholesterolemia, unspecified; I34.1 Nonrheumatic mitral (valve) prolapse; K76.0 Fatty (change of) liver, not elsewhere classified; E03.9 Hypothyroidism, unspecified; Z79.899 Other long term (current) drug therapy; Z79.890 Hormone replacement therapy; G47.30 Sleep apnea, unspecified; Z87.891 Personal history of nicotine dependence

== ENCOUNTER → 2023-12-26 | Outpatient (REF) | payer MEDICARE ==
[2023-12-26 18:26] LABS: APPEARANCE, URINE HAZY (CLEAR); BACTERIA, URINE AUTO NEGATIVE (NEGATIVE); BILIRUBIN, URINE AUTO NEGATIVE (NEGATIVE); BLOOD, URINE BLOOD 3+ (NEGATIVE); COLOR, URINE YELLOW (YELLOW); GLUCOSE, URINE (UA) AUTO NEGATIVE (NEGATIVE); KETONE, URINE AUTO NEGATIVE (NEGATIVE); LEUKOCYTE ESTERASE, URINE AUTO NEGATIVE (NEGATIVE); MUCUS, URINE SMALL (NEGATIVE); NITRITE, URINE AUTO NEGATIVE (NEGATIVE); PROTEIN, URINE AUTO 1+ mg/dL (NEGATIVE); RBC, URINE AUTO TNTC /HPF (0-3); SPECIFIC GRAVITY URINE AUTO 1.013 (1.002-1.035); SQUAMOUS EPITHELIAL CELL UR AU 2 /HPF (0-6); UROBILINOGEN, URINE AUTO 0.2 mg/dL (0.0-2.0); WBC, URINE AUTO 7 /HPF (0-3)
== END ==
LOC: M SFHCWAGY 16:56
PROVIDERS: ATTEND Nurse Practitioner Family
DX: N39.0 Urinary tract infection, site not specified (principal); R39.15 Urgency of urination

== ENCOUNTER → 2024-01-12 | Outpatient (CLI) | payer MEDICARE | LOC: M WHC 13:45 | PROVIDERS: ATTEND Nurse Practitioner Family | DX: Z12.31 Encounter for screening mammogram for malignant neoplasm of breast (principal); N95.0 Postmenopausal bleeding; R92.313 Mammographic fatty tissue density, bilateral breasts; D25.9 Leiomyoma of uterus, unspecified; N90.89 Other specified noninflammatory disorders of vulva and perineum ==

== ENCOUNTER → 2024-01-30 | Outpatient (REF) | payer MEDICARE ==
[2024-01-30 18:53] LABS: ALBUMIN 3.2 G/DL (3.2-5.2); BILIRUBIN,DIRECT 0.2 MG/DL (<0.4); BILIRUBIN,TOTAL 0.5 MG/DL (0.3-1.2); CALCIUM LEVEL 8.7 MG/DL (8.3-10.6); CREATININE FOR GFR 1.29 MG/DL (0.55-1.30); GLOMERULAR FILTRATION RATE 43.6 (>45); POTASSIUM SERUM 4.2 MMOL/L (3.5-5.1); TOTAL PROTEIN 5.9 G/DL (5.7-8.2)
[2024-01-30 19:30] LABS: BASO % 0.7 % (0.0-1.0); EOS # 0.1 10^3/uL (0.0-0.5); EOS % 1.8 % (0.0-3.0); HEMATOCRIT 37.5 % (36.0-47.0); HEMOGLOBIN 12.6 g/dl (12.0-15.5); LYMPH # 0.9 10^3/uL (1.5-5.0); MEAN CORPUSCULAR HGB CONC 33.6 g/dl (32.0-36.5); MEAN CORPUSCULAR VOLUME 95.2 fl (80.0-96.0); MONO # 0.3 10^3/uL (0.0-0.8); MONO % 6.7 % (2.0-8.0); NEUTROPHILS # 3.2 10^3/uL (1.5-8.5); NEUTROPHILS % 70.6 % (36.0-66.0); RED BLOOD COUNT 3.94 10^6/uL (4.00-5.40); WHITE BLOOD COUNT 4.5 10^3/uL (4.0-10.0)
[2024-01-30 19:33] LABS: PLATELET COUNT, AUTOMATED 76 10^3/uL (150-450)
== END ==
LOC: M LABDRWCV 17:17
PROVIDERS: ATTEND Internal Medicine Gastroenterology
DX: K74.60 Unspecified cirrhosis of liver (principal)

== ENCOUNTER → 2024-02-09 | Outpatient (REF) | payer MEDICARE ==
[2024-02-09 17:13] LABS: CHOLESTEROL RISK RATIO 3.82 (<5); HDL CHOLESTEROL 42.1 MG/DL (>40); LDL CHOLESTEROL 91.5 MG/DL (<100); NON-HDL-C 118.9 MG/DL
[2024-02-09 17:15] LABS: THYROID STIMULATING HORMONE 7.707 uIU/ML (0.55-4.78)
[2024-02-09 17:16] LABS: FREE T4 1.33 NG/DL (0.89-1.76)
[2024-02-09 17:28] LABS: APPEARANCE, URINE MANUAL CLOUDY (CLEAR); COLOR, URINE MANUAL ORANGE (YELLOW)
[2024-02-09 17:29] LABS: BILIRUBIN, URINE MANUAL OBSCURED (NEGATIVE); BLOOD URINE MANUAL POSITIVE (NEGATIVE); GLUCOSE, URINE (UA) MANUAL NEGATIVE (NEGATIVE); KETONE, URINE MANUAL OBSCURED mg/dL (NEGATIVE); LEUKOCYTE ESTERASE, URINE MAN OBSCURED (NEGATIVE); NITRITE, URINE MANUAL OBSCURED (NEGATIVE); PROTEIN, URINE MANUAL 2+ mg/dL (NEGATIVE); SPECIFIC GRAVITY,URINE MANUAL 1.015 (1.002-1.035); UROBILINOGEN, URINE MANUAL OBSCURED mg/dl (NORMAL)
[2024-02-09 17:30] LABS: BACTERIA, URINE SMALL AMOUNT; HYALINE CAST, URINE NONE SEEN /lpf (0-1); RBC, URINE 20-30 /hpf (0-3); SQUAMOUS EPITHELIAL CELL URINE NONE SEEN /hpf (SMALL AMT)
== END ==
LOC: M SFHCCAPE 09:39
PROVIDERS: ATTEND Physician Assistant Medical
DX: E03.9 Hypothyroidism, unspecified (principal); R31.9 Hematuria, unspecified; E78.5 Hyperlipidemia, unspecified

== ENCOUNTER → 2024-02-27 | Outpatient (CLI) | payer MEDICARE | LOC: M RAD 06:18 | PROVIDERS: ATTEND Internal Medicine Gastroenterology | DX: K74.60 Unspecified cirrhosis of liver (principal) ==

== ENCOUNTER → 2024-03-05 | Outpatient (REF) | payer MEDICARE ==
[2024-03-05 17:59] LABS: ALBUMIN 3.1 G/DL (3.2-5.2); BILIRUBIN,TOTAL 0.6 MG/DL (0.3-1.2); CALCIUM LEVEL 8.6 MG/DL (8.3-10.6); CREATININE FOR GFR 1.29 MG/DL (0.55-1.30); CREATININE, URINE 159.9 MG/DL; GLOMERULAR FILTRATION RATE 43.6 (>45); MAU/CREAT RATIO 161.9 MCG/MG (0.0-30.0); POTASSIUM SERUM 4.1 MMOL/L (3.5-5.1); TOTAL PROTEIN 5.6 G/DL (5.7-8.2)
== END ==
LOC: M SFHCCAPE 09:22
PROVIDERS: ATTEND Physician Assistant Medical
DX: R31.21 Asymptomatic microscopic hematuria (principal)

== ENCOUNTER → 2024-03-16 | Outpatient (REF) | payer MEDICARE ==
[2024-03-16 12:40] LABS: APPEARANCE, URINE HAZY (CLEAR); BACTERIA, URINE AUTO NEGATIVE (NEGATIVE); BILIRUBIN, URINE AUTO NEGATIVE (NEGATIVE); BLOOD, URINE BLOOD 2+ (NEGATIVE); COLOR, URINE RED (YELLOW); GLUCOSE, URINE (UA) AUTO NEGATIVE (NEGATIVE); KETONE, URINE AUTO NEGATIVE (NEGATIVE); LEUKOCYTE ESTERASE, URINE AUTO NEGATIVE (NEGATIVE); NITRITE, URINE AUTO NEGATIVE (NEGATIVE); PROTEIN, URINE AUTO 1+ mg/dL (NEGATIVE); RBC, URINE AUTO TNTC /HPF (0-3); SPECIFIC GRAVITY URINE AUTO 1.006 (1.002-1.035); SQUAMOUS EPITHELIAL CELL UR AU 1 /HPF (0-6); UROBILINOGEN, URINE AUTO 0.2 mg/dL (0.0-2.0); WBC, URINE AUTO 116 /HPF (0-3)
== END ==
LOC: M SMT 10:33
PROVIDERS: ATTEND Specialist
DX: R31.0 Gross hematuria (principal)

== ENCOUNTER → 2024-03-26 | Outpatient (REF) | payer MEDICARE ==
[2024-03-26 22:14] LABS: CALCIUM LEVEL 8.1 MG/DL (8.3-10.6); CREATININE FOR GFR 1.19 MG/DL (0.55-1.30); GLOMERULAR FILTRATION RATE 47.9 (>45)
== END ==
LOC: M LABSMT 10:44
PROVIDERS: ATTEND Specialist
DX: R31.0 Gross hematuria (principal)

== ENCOUNTER → 2024-03-29 | Outpatient (CLI) | payer MEDICARE ==
[~2024-03-29] MED LIST changes: +ISOVUE-370 76% 100ML VIAL As Ordered ONE
== END ==
LOC: M RAD 14:41
PROVIDERS: ATTEND Specialist
DX: R31.0 Gross hematuria (principal); N28.1 Cyst of kidney, acquired; N28.89 Other specified disorders of kidney and ureter; N13.30 Unspecified hydronephrosis; K80.20 Calculus of gallbladder without cholecystitis without obstruction; K57.30 Diverticulosis of large intestine without perforation or abscess without bleeding; N83.201 Unspecified ovarian cyst, right side; K76.9 Liver disease, unspecified
CPT/HCPCS: 74178; Q9967

== ENCOUNTER → 2024-04-25 | Outpatient (REF) | payer MEDICARE ==
[~2024-04-25] MED LIST changes: +ACET-683 PO; +ALDA25TA2 PO; +CEFD300CAP PO; +DSS100CA PO; +ESTR0.1C5 VG; +HYDR-3713 PO; -ISOVUE-370 76% 100ML VIAL As Ordered ONE; +LASI40TA9 PO; +MACR100C43 PO; +OMEP40CA5 PO; +OXYB5TAB14 PO; +PYRI1TAB5 PO
[2024-04-25 16:49] LABS: HEMATOCRIT 32.2 % (36.0-47.0); HEMOGLOBIN 10.3 g/dl (12.0-15.5); MEAN CORPUSCULAR HEMOGLOBIN 30.5 pg (27.0-33.0); MEAN CORPUSCULAR VOLUME 95.3 fl (80.0-96.0); PLATELET COUNT, AUTOMATED 132 10^3/uL (150-450); RED BLOOD COUNT 3.38 10^6/uL (4.00-5.40)
[2024-04-25 17:07] LABS: INR 1.35; PROTHROMBIN TIME 16.2 SECONDS (12.5-14.5)
[2024-04-25 17:08] LABS: ALBUMIN 2.5 G/DL (3.2-5.2); BILIRUBIN,TOTAL 0.6 MG/DL (0.3-1.2); CALCIUM LEVEL 8.2 MG/DL (8.3-10.6); CREATININE FOR GFR 1.25 MG/DL (0.55-1.30); GLOMERULAR FILTRATION RATE 45.2 (>45); POTASSIUM SERUM 3.8 MMOL/L (3.5-5.1); TOTAL PROTEIN 5.2 G/DL (5.7-8.2)
== END ==
LOC: M SFHCCAPE 13:47
PROVIDERS: ATTEND Urology
DX: D49.4 Neoplasm of unspecified behavior of bladder (principal)

== ENCOUNTER 2024-04-30 13:11 | Inpatient (IN) | payer MEDICARE ==
[~2024-04-30] VITALS: Ht 147.3 cm; Wt 77.6 kg
[~2024-04-30 13:11] MED LIST changes: -ACET-683 PO; -ALDA25TA2 PO; -CEFD300CAP PO; -DSS100CA PO; -ESTR0.1C5 VG; -HYDR-3713 PO; -LASI40TA9 PO; -MACR100C43 PO; -OMEP40CA5 PO; -OXYB5TAB14 PO; -PYRI1TAB5 PO
[2024-04-30 14:31] LABS: BASO % 0.3 % (0.0-1.0); EOS # 0.1 10^3/uL (0.0-0.5); EOS % 0.8 % (0.0-3.0); HEMATOCRIT 36.1 % (36.0-47.0); HEMOGLOBIN 11.6 g/dl (12.0-15.5); LYMPH # 0.8 10^3/uL (1.5-5.0); LYMPH % 10.2 % (24.0-44.0); MEAN CORPUSCULAR HEMOGLOBIN 30.4 pg (27.0-33.0); MEAN CORPUSCULAR HGB CONC 32.1 g/dl (32.0-36.5); MEAN CORPUSCULAR VOLUME 94.5 fl (80.0-96.0); MONO # 0.5 10^3/uL (0.0-0.8); NEUTROPHILS % 81.3 % (36.0-66.0); PLATELET COUNT, AUTOMATED 152 10^3/uL (150-450); RED BLOOD COUNT 3.82 10^6/uL (4.00-5.40); WHITE BLOOD COUNT 7.3 10^3/uL (4.0-10.0)
[2024-04-30 14:50] LABS: CK-MB VALUE MASS < 1.0 NG/ML (<3.6)
[2024-04-30 14:52] LABS: LIPASE 29 U/L (12-53)
[2024-04-30 14:53] LABS: CPK CREATINE PHOSPHOKINASE 22 U/L (34-145); MB/CK RELATIVE INDEX 4.54 (< OR =4)
[2024-04-30 14:54] LABS: ALBUMIN 2.6 G/DL (3.2-5.2); ALKALINE PHOSPHATASE 223 U/L (46-116); ALT/SGPT 19 U/L (7.0-40); AST/SGOT 31 U/L (<34); BILIRUBIN,DIRECT 0.3 MG/DL (<0.4); BILIRUBIN,TOTAL 0.7 MG/DL (0.3-1.2); BLOOD UREA NITROGEN 18 MG/DL (9-23); CALCIUM LEVEL 8.5 MG/DL (8.3-10.6); CARBON DIOXIDE LEVEL 23 MMOL/L (20-31); CHLORIDE LEVEL 110 MMOL/L (98-107); CREATININE FOR GFR 1.25 MG/DL (0.55-1.30); GLOMERULAR FILTRATION RATE 45.2 (>45); GLUCOSE, FASTING 108 MG/DL (74-106); POTASSIUM SERUM 4.2 MMOL/L (3.5-5.1); SODIUM LEVEL 138 MMOL/L (136-145); TOTAL PROTEIN 5.4 G/DL (5.7-8.2)
[2024-04-30] MEDS: MORPHINE 4 MG/ML 1ML VIAL IV ONE (18:00)
[2024-04-30] MEDS ORDERED: ISOVUE-370 76% 100ML VIAL As Ordered ONE (18:47)
[2024-04-30 19:31] LABS: CK-MB VALUE MASS < 1.0 NG/ML (<3.6)
[2024-04-30 19:34] LABS: CPK CREATINE PHOSPHOKINASE 29 U/L (34-145); MB/CK RELATIVE INDEX 3.44 (< OR =4)
[2024-04-30] MEDS ORDERED: ACET-683 PO (20:59)
[2024-04-30] MEDS ORDERED: HOME MED LIST COMPLETE! XX SCH (21:10)
[2024-04-30] MEDS ORDERED: MOM 30ML SUSPENSION UDC PO PRN (23:20)
[2024-04-30] MEDS ORDERED: MORPHINE 4 MG/ML 1ML VIAL IV PRN (23:50)
[2024-04-30] MEDS ORDERED: MORPHINE 2 MG/ML 1ML VIAL IV PRN (23:50)
[2024-04-30] MEDS ORDERED: GABAPENTIN 100 MG CAP PO PRN (23:55)
[2024-04-30 23:59] LABS: PROCALCITONIN 0.25 ng/ml
[2024-05-01 01:40] VITALS: BP 118/65; TEMP 97.7; O2SAT 97
[2024-05-01] MEDS ORDERED: PILL CUTTER 1 EACH XX PRN (01:55)
[2024-05-01] MEDS: cefTRIAXone SOD 1 GM in D5W MINI-BAG PLUS 50 ML IV SCH (02:58)
[2024-05-01] MEDS: ACETAMINOPHEN TAB 650MG DOSE (2X325MG) PO PRN (03:01)
[2024-05-01] MEDS ORDERED: ACETAMINOPHEN TAB 650MG DOSE (2X325MG) PO PRN (04:00)
[2024-05-01 06:15] VITALS: BP 106/54; TEMP 97.4; O2SAT 96
[2024-05-01] MEDS: LEVOTHYROXINE 150MCG TABLET (0.15MG) PO SCH (06:22)
[2024-05-01 06:29] LABS: MEAN CORPUSCULAR HEMOGLOBIN 30.7 pg (27.0-33.0); MEAN CORPUSCULAR HGB CONC 32.9 g/dl (32.0-36.5); MEAN CORPUSCULAR VOLUME 93.5 fl (80.0-96.0); PLATELET COUNT, AUTOMATED 113 10^3/uL (150-450); RED BLOOD COUNT 3.09 10^6/uL (4.00-5.40); WHITE BLOOD COUNT 4.9 10^3/uL (4.0-10.0)
[2024-05-01 06:53] LABS: HEMATOCRIT 28.9 % (36.0-47.0); HEMOGLOBIN 9.5 g/dl (12.0-15.5)
[2024-05-01 07:20] LABS: ALBUMIN 2.3 G/DL (3.2-5.2); BILIRUBIN,DIRECT 0.3 MG/DL (<0.4); BILIRUBIN,TOTAL 0.4 MG/DL (0.3-1.2); CALCIUM LEVEL 7.7 MG/DL (8.3-10.6); CREATININE FOR GFR 1.18 MG/DL (0.55-1.30); GLOMERULAR FILTRATION RATE 48.3 (>45); TOTAL PROTEIN 4.5 G/DL (5.7-8.2)
[2024-05-01] MEDS: FUROSEMIDE 20 MG TAB PO SCH (09:05)
[2024-05-01] MEDS: OMEPRAZOLE 20MG CAP PO SCH (09:06)
[2024-05-01] MEDS: ASCORBIC ACID 500 MG TAB PO SCH (09:06)
[2024-05-01] MEDS: DOCUSATE SODIUM 100MG CAPSULE PO SCH (09:06)
[2024-05-01] MEDS: SPIRONOLACTONE 25 MG TAB PO SCH (09:06)
[2024-05-01] MEDS: FOLIC ACID 1MG TAB PO SCH (09:06)
[2024-05-01] MEDS: PROPRANOLOL 20 MG TAB PO SCH ×2 (09:14→21:35)
[2024-05-01] MEDS ORDERED: PROHANCE 279.3MG/ML 15ML VIAL As Ordered ONE (11:42)
[2024-05-01] MEDS: NYSTATIN 100,000 UNITS/GM TOPICAL PWD 15GM TOP SCH (13:58)
[2024-05-01] MEDS: oxyCODONE 5MG TAB PO PRN (16:05)
[2024-05-01 20:00] VITALS: BP 122/55; TEMP 97; O2SAT 95
[2024-05-01] MEDS: SIMVASTATIN 10 MG TAB PO SCH (21:34)
[2024-05-02 04:00] VITALS: BP 131/58; TEMP 97.3; O2SAT 97
[2024-05-02 08:27] VITALS: BP 119/56
[2024-05-02] MEDS: ENOXAPARIN 40MG/0.4ML SYRINGE (J1650 PER 10MG) SC SCH (09:00)
[2024-05-02] MEDS ORDERED: LASI40TA9 PO (11:24)
[2024-05-02] MEDS ORDERED: CEFD300CAP PO (11:24)
[2024-05-02] MEDS ORDERED: ALDA25TA2 PO (11:24)
[2024-05-02 12:00] VITALS: BP 117/56; TEMP 97.3; O2SAT 98
[2024-05-08] MEDS ORDERED: OMEP40CA5 PO (13:22)
[2024-05-08] MEDS ORDERED: ESTR0.1C5 VG (13:22)
[2024-05-08] MEDS ORDERED: DSS100CA PO (13:28)
== END 2024-05-02 13:58 | disposition home or self-care (01) | DRG 694 ==
LOC: M ED 13:11 → M ED INP 23:18 → M MSPAV 05-01 01:34
PROVIDERS: ADMIT Student in an Organized Health Care Education/Training Program; ATTEND Internal Medicine Nephrology
DX: N13.1 Hydronephrosis with ureteral stricture, not elsewhere classified (principal); R18.8 Other ascites; K76.6 Portal hypertension; K74.60 Unspecified cirrhosis of liver; K21.9 Gastro-esophageal reflux disease without esophagitis; E03.9 Hypothyroidism, unspecified; I10 Essential (primary) hypertension; G47.33 Obstructive sleep apnea (adult) (pediatric); N83.201 Unspecified ovarian cyst, right side; K80.20 Calculus of gallbladder without cholecystitis without obstruction; K76.89 Other specified diseases of liver; G25.81 Restless legs syndrome; R16.1 Splenomegaly, not elsewhere classified; E66.9 Obesity, unspecified; N32.89 Other specified disorders of bladder; K75.81 Nonalcoholic steatohepatitis (NASH); D69.6 Thrombocytopenia, unspecified; N39.0 Urinary tract infection, site not specified; G62.9 Polyneuropathy, unspecified; E78.5 Hyperlipidemia, unspecified; Z79.890 Hormone replacement therapy; Z68.35 Body mass index [BMI] 35.0-35.9, adult; Z79.899 Other long term (current) drug therapy

== ENCOUNTER → 2024-05-07 | Outpatient (CLI) | payer MEDICARE ==
[~2024-05-07] MED LIST changes: +ACET-683 PO; +ALDA25TA2 PO; +CEFD300CAP PO; +DSS100CA PO; +ESTR0.1C5 VG; +HYDR-3713 PO; +LASI40TA9 PO; +MACR100C43 PO; +OMEP40CA5 PO; +OXYB5TAB14 PO; +PYRI1TAB5 PO
== END ==
LOC: M CLY 14:13
PROVIDERS: ATTEND Family Medicine
DX: Z01.818 Encounter for other preprocedural examination (principal); D49.4 Neoplasm of unspecified behavior of bladder; Z79.899 Other long term (current) drug therapy

== ENCOUNTER → 2024-05-07 | Outpatient (CLI) | payer MEDICARE ==
[~2024-05-07] MED LIST changes: -HYDR-3713 PO; -MACR100C43 PO; -OXYB5TAB14 PO; -PYRI1TAB5 PO
== END ==
LOC: M CLY 14:21
PROVIDERS: ATTEND Family Medicine
DX: Z01.818 Encounter for other preprocedural examination (principal); I11.9 Hypertensive heart disease without heart failure

== ENCOUNTER 2024-05-10 09:26 | Day surgery (SDC) | payer MEDICARE ==
[~2024-05-10] VITALS: Ht 147.3 cm; Wt 73.6 kg
[2024-05-10] MEDS ORDERED: LR 1,000 ML IV SCH (10:20)
[2024-05-10] MEDS ORDERED: propofoL 200 MG/20 ML VIAL As Ordered ONE (11:36)
[2024-05-10] MEDS ORDERED: fentaNYL 100 MCG/2 ML INJECTION As Ordered ONE (11:36)
[2024-05-10] MEDS ORDERED: LIDOCAINE 2% 100MG/5ML SDV (FOR ANES.) As Ordered ONE (11:36)
[2024-05-10] MEDS ORDERED: MIDAZOLAM INJ 2MG/2ML VIAL As Ordered ONE (11:36)
[2024-05-10] MEDS ORDERED: ROCURONIUM BROMIDE 50MG/5ML VIAL As Ordered ONE (11:37)
[2024-05-10] MEDS ORDERED: ACETAMINOPHEN 1000MG 100ML IV BAG As Ordered ONE (11:38)
[2024-05-10] MEDS ORDERED: ePHEDrine SULFATE 25 MG/5 ML(5MG/ML) SYRINGE As Ordered ONE (12:07)
[2024-05-10] MEDS: ceFAZolin 2 GM/D5W 50 ML IV BAG As Ordered ONE (12:10)
[2024-05-10] MEDS ORDERED: ONDANSETRON 4MG 2ML VIAL As Ordered ONE (12:18)
[2024-05-10] MEDS ORDERED: SUGAMMADEX SODIUM 500 MG/5 ML VIAL (BRIDION) As Ordered ONE (12:18)
[2024-05-10] MEDS ORDERED: oxyCODONE 5MG TAB PO PRN (13:25)
[2024-05-10] MEDS ORDERED: HYDROMORPHONE HCL 0.5 MG/ 0.5 ML SYRINGE IV PRN (13:25)
[2024-05-10] MEDS: ONDANSETRON 4MG 2ML VIAL IV PRN (13:30)
[2024-05-10] MEDS: fentaNYL 100 MCG/2 ML INJECTION IV PRN (13:47)
[2024-05-10] MEDS: LR 1,000 ML IV SCH (13:49)
[2024-05-10] MEDS ORDERED: OXYB5TAB14 PO (14:43)
[2024-05-10] MEDS ORDERED: HYDR-3713 PO (14:43)
[2024-05-10] MEDS ORDERED: MACR100C43 PO (14:43)
[2024-05-10] MEDS ORDERED: PYRI1TAB5 PO (14:43)
[2024-05-10 16:10] VITALS: BP 129/66; TEMP 97.1; O2SAT 97
== END 2024-05-10 16:40 | disposition home or self-care (01) ==
LOC: M SDC 09:26
PROVIDERS: ATTEND Urology
DX: C67.9 Malignant neoplasm of bladder, unspecified (principal); E03.9 Hypothyroidism, unspecified; I10 Essential (primary) hypertension; E78.5 Hyperlipidemia, unspecified; K76.0 Fatty (change of) liver, not elsewhere classified; K21.9 Gastro-esophageal reflux disease without esophagitis; Z79.899 Other long term (current) drug therapy; G43.909 Migraine, unspecified, not intractable, without status migrainosus; G47.33 Obstructive sleep apnea (adult) (pediatric)
CPT/HCPCS: 52240; 88307; J0131; J0690; J1100; J2250; J2405; J3010

== ENCOUNTER → 2024-05-22 | Outpatient (CLI) | payer MEDICARE ==
[~2024-05-22] MED LIST changes: +HYDR-3713 PO; +ISOVUE-370 76% 100ML VIAL ONE; +MACR100C43 PO; +OXYB5TAB14 PO; +PYRI1TAB5 PO
== END ==
LOC: M PLAIMG 13:52
PROVIDERS: ATTEND Urology
DX: C67.8 Malignant neoplasm of overlapping sites of bladder (principal); K80.20 Calculus of gallbladder without cholecystitis without obstruction; K76.6 Portal hypertension; R16.1 Splenomegaly, not elsewhere classified; N13.30 Unspecified hydronephrosis; K74.60 Unspecified cirrhosis of liver
CPT/HCPCS: 71260; Q9967

== ENCOUNTER → 2024-05-25 | Outpatient (CLI) | payer MEDICARE ==
[~2024-05-25] VITALS: Ht 149.9 cm; Wt 73.0 kg
[~2024-05-25] MED LIST changes: +ACETAMINOPHEN 325 MG TAB PO PRN; +CIPROFLOXACIN/D5W 400 MG/200 ML BAG As Ordered ONE; +ISOVUE-300 61% 100ML VIAL As Ordered ONE; -ISOVUE-370 76% 100ML VIAL ONE; +LIDOCAINE 1% MDV 20ML VIAL As Ordered ONE; +MIDAZOLAM INJ 2MG/2ML VIAL As Ordered ONE; +NS 1,000 ML IV SCH; +ONDANSETRON 4MG 2ML VIAL IV PRN; +fentaNYL 100 MCG/2 ML INJECTION As Ordered ONE
[2024-05-25 08:10] VITALS: TEMP 97.5
[2024-05-25] MEDS: NS 1,000 ML IV SCH (09:15)
[2024-05-25] MEDS: CIPROFLOXACIN 400 MG in IV 1 EA IV ONE (09:15)
[2024-05-25 11:45] VITALS: BP 117/51; O2SAT 98
== END ==
LOC: M IRPRO 07:55
PROVIDERS: ATTEND Urology
DX: N28.89 Other specified disorders of kidney and ureter (principal); C67.9 Malignant neoplasm of bladder, unspecified
CPT/HCPCS: 50432; 99152; C1729; C1769; C1894; J0744; J2250; J3010; Q9967

== ENCOUNTER → 2024-06-04 | Outpatient (REF) | payer MEDICARE ==
[~2024-06-04] MED LIST changes: -ACETAMINOPHEN 325 MG TAB PO PRN; -CIPROFLOXACIN/D5W 400 MG/200 ML BAG As Ordered ONE; -ISOVUE-300 61% 100ML VIAL As Ordered ONE; -LIDOCAINE 1% MDV 20ML VIAL As Ordered ONE; -MIDAZOLAM INJ 2MG/2ML VIAL As Ordered ONE; -NS 1,000 ML IV SCH; -ONDANSETRON 4MG 2ML VIAL IV PRN; -fentaNYL 100 MCG/2 ML INJECTION As Ordered ONE
[2024-06-04 19:15] LABS: CALCIUM LEVEL 8.6 MG/DL (8.3-10.6); CREATININE FOR GFR 1.21 MG/DL (0.55-1.30); POTASSIUM SERUM 3.9 MMOL/L (3.5-5.1)
[2024-06-04 19:16] LABS: FREE T4 1.54 NG/DL (0.89-1.76)
[2024-06-04 19:17] LABS: THYROID STIMULATING HORMONE 4.303 uIU/ML (0.55-4.78)
== END ==
LOC: M LABDRWCV 16:46
PROVIDERS: ATTEND Internal Medicine Medical Oncology
DX: E03.9 Hypothyroidism, unspecified (principal)

== ENCOUNTER → 2024-06-27 | Outpatient (REF) | payer MEDICARE ==
[2024-06-27 17:52] LABS: HEMATOCRIT 33.6 % (36.0-47.0); HEMOGLOBIN 10.7 g/dl (12.0-15.5); MEAN CORPUSCULAR HEMOGLOBIN 31.5 pg (27.0-33.0); MEAN CORPUSCULAR HGB CONC 31.8 g/dl (32.0-36.5); MEAN CORPUSCULAR VOLUME 98.8 fl (80.0-96.0); PLATELET COUNT, AUTOMATED 187 10^3/uL (150-450); WHITE BLOOD COUNT 7.7 10^3/uL (4.0-10.0)
[2024-06-27 17:59] LABS: ALBUMIN 2.2 G/DL (3.2-5.2); BILIRUBIN,TOTAL 0.6 MG/DL (0.3-1.2); CALCIUM LEVEL 8.4 MG/DL (8.3-10.6); CREATININE FOR GFR 1.17 MG/DL (0.55-1.30); GLOMERULAR FILTRATION RATE 48.8 (>45); POTASSIUM SERUM 4.1 MMOL/L (3.5-5.1); TOTAL PROTEIN 5.2 G/DL (5.7-8.2)
== END ==
LOC: M SFHCCAPE 10:37
PROVIDERS: ATTEND Urology
DX: R31.0 Gross hematuria (principal)

== ENCOUNTER → 2024-08-09 | Outpatient (REF) | payer MEDICARE ==
[2024-08-09 17:42] LABS: HEMOGLOBIN 10.7 g/dl (12.0-15.5); MEAN CORPUSCULAR HEMOGLOBIN 32.7 pg (27.0-33.0); MEAN CORPUSCULAR HGB CONC 32.4 g/dl (32.0-36.5); MEAN CORPUSCULAR VOLUME 100.9 fl (80.0-96.0); PLATELET COUNT, AUTOMATED 202 10^3/uL (150-450); RED BLOOD COUNT 3.27 10^6/uL (4.00-5.40); WHITE BLOOD COUNT 8.6 10^3/uL (4.0-10.0)
[2024-08-09 18:12] LABS: ALBUMIN 2.2 G/DL (3.2-5.2); BILIRUBIN,TOTAL 0.6 MG/DL (0.3-1.2); CREATININE FOR GFR 1.2 MG/DL (0.55-1.30); GLOMERULAR FILTRATION RATE 47.4 (>45); POTASSIUM SERUM 4.3 MMOL/L (3.5-5.1); TOTAL PROTEIN 5.2 G/DL (5.7-8.2)
== END ==
LOC: M LABDRWCV 16:43
PROVIDERS: ATTEND Urology
DX: C67.4 Malignant neoplasm of posterior wall of bladder (principal)

== ENCOUNTER → 2024-08-09 | Outpatient (CLI) | payer MEDICARE ==
[~2024-08-09] MED LIST changes: +ISOVUE-370 76% 100ML VIAL As Ordered ONE
== END ==
LOC: M RAD 15:12
PROVIDERS: ATTEND Urology
DX: C67.4 Malignant neoplasm of posterior wall of bladder (principal); R93.2 Abnormal findings on diagnostic imaging of liver and biliary tract; R91.8 Other nonspecific abnormal finding of lung field
CPT/HCPCS: 71260; 74177; Q9967

== ENCOUNTER → 2024-08-17 | Outpatient (CLI) | payer MEDICARE ==
[~2024-08-17] VITALS: Ht 147.3 cm; Wt 71.0 kg
[~2024-08-17] MED LIST changes: +ACETAMINOPHEN 325 MG TAB PO PRN; +CIPROFLOXACIN/D5W 400 MG/200 ML BAG As Ordered ONE; +ISOVUE-300 61% 100ML VIAL As Ordered ONE; -ISOVUE-370 76% 100ML VIAL As Ordered ONE; +LIDOCAINE 1% MDV 20ML VIAL As Ordered ONE; +MIDAZOLAM INJ 2MG/2ML VIAL As Ordered ONE; +NS (Normal Saline) 0.9% 1,000 ML IV SCH; +ONDANSETRON 4MG 2ML VIAL IV PRN; +fentaNYL 100 MCG/2 ML INJECTION As Ordered ONE
[2024-08-17 12:20] VITALS: TEMP 97.2
[2024-08-17] MEDS: CIPROFLOXACIN 400 MG in IV 1 EA IV ONE (12:43)
[2024-08-17 14:00] VITALS: BP 119/60; O2SAT 98
== END ==
LOC: M IRPRO 11:35
PROVIDERS: ATTEND Radiology Diagnostic Radiology
DX: C67.9 Malignant neoplasm of bladder, unspecified (principal)
CPT/HCPCS: 50435; 99152; C1729; J0744; J2250; J3010; Q9967

== ENCOUNTER → 2024-09-04 | Outpatient (CLI) | payer MEDICARE ==
[~2024-09-04] MED LIST changes: -ACETAMINOPHEN 325 MG TAB PO PRN; -CIPROFLOXACIN/D5W 400 MG/200 ML BAG As Ordered ONE; -ISOVUE-300 61% 100ML VIAL As Ordered ONE; -LIDOCAINE 1% MDV 20ML VIAL As Ordered ONE; -MIDAZOLAM INJ 2MG/2ML VIAL As Ordered ONE; -NS (Normal Saline) 0.9% 1,000 ML IV SCH; -ONDANSETRON 4MG 2ML VIAL IV PRN; -fentaNYL 100 MCG/2 ML INJECTION As Ordered ONE
[2024-09-04 08:40] VITALS: TEMP 97.5
[2024-09-04 10:08] LABS: SOURCE, BODY FLUID GLUCOSE ASCITES; SOURCE, BODY FLUID TOT PROTEIN ASCITES; TOTAL PROTEIN, BODY FLUID < 2.0 G/DL (NOT ESTABLISHED)
[2024-09-04 10:09] LABS: LDH, BODY FLUID 50 U/L (NOT ESTABLISHED); SOURCE, BODY FLUID LDH ASCITES
[2024-09-04 10:26] LABS: SOURCE, BODY FLUID pH ASCITES
[2024-09-04 10:30] VITALS: BP 106/53; O2SAT 99
[2024-09-04 10:54] LABS: ASCITES FL COLOR COLORLESS (COLORLESS); SOURCE, BODY FLUID ASCITES
[2024-09-04 10:55] LABS: APPEARANCE, BODY FLUID HAZY (CLEAR)
== END ==
LOC: M IRPRO 08:29
PROVIDERS: ATTEND Internal Medicine Medical Oncology
DX: R18.8 Other ascites (principal); D69.6 Thrombocytopenia, unspecified

== ENCOUNTER 2024-09-21 15:49 | Inpatient (IN) | payer MEDICARE ==
[~2024-09-21] VITALS: Ht 147.3 cm; Wt 76.4 kg
[2024-09-21 17:25] LABS: BASO % 0.1 % (0.0-1.0); EOS % 0.2 % (0.0-3.0); HEMATOCRIT 38.8 % (36.0-47.0); HEMOGLOBIN 12.9 g/dl (12.0-15.5); LYMPH # 2.3 10^3/uL (1.5-5.0); MEAN CORPUSCULAR HEMOGLOBIN 33.6 pg (27.0-33.0); MEAN CORPUSCULAR HGB CONC 33.2 g/dl (32.0-36.5); MONO # 1.2 10^3/uL (0.0-0.8); MONO % 5.9 % (2.0-8.0); NEUTROPHILS % 82.1 % (36.0-66.0); PLATELET COUNT, AUTOMATED 168 10^3/uL (150-450); RED BLOOD COUNT 3.84 10^6/uL (4.00-5.40); WHITE BLOOD COUNT 20.7 10^3/uL (4.0-10.0)
[2024-09-21 17:46] LABS: LIPASE 51 U/L (12-53)
[2024-09-21 17:48] LABS: ALBUMIN 2.1 G/DL (3.2-5.2); ALKALINE PHOSPHATASE 588 U/L (35-104); ALT/SGPT 27 U/L (7.0-40); AST/SGOT 51 U/L (<34); BILIRUBIN,DIRECT 0.5 MG/DL (<0.4); BLOOD UREA NITROGEN 63 MG/DL (9-23); CALCIUM LEVEL 7.9 MG/DL (8.3-10.6); CARBON DIOXIDE LEVEL 19 MMOL/L (20-31); CHLORIDE LEVEL 103 MMOL/L (98-107); CREATININE FOR GFR 2.06 MG/DL (0.55-1.30); GLOMERULAR FILTRATION RATE 25.4 (>45); GLUCOSE, FASTING 104 MG/DL (74-106); POTASSIUM SERUM 5.4 MMOL/L (3.5-5.1); SODIUM LEVEL 134 MMOL/L (136-145); TOTAL PROTEIN 5.1 G/DL (5.7-8.2)
[2024-09-21 20:16] LABS: CK-MB VALUE MASS < 1.0 NG/ML (<3.6)
[2024-09-21 20:18] LABS: CPK CREATINE PHOSPHOKINASE 21 U/L (34-145); MB/CK RELATIVE INDEX 4.76 (< OR =4)
[2024-09-21 20:20] LABS: THYROID STIMULATING HORMONE 15.593 uIU/ML (0.55-4.78)
[2024-09-21 20:21] LABS: FREE T4 1.41 NG/DL (0.89-1.76)
[2024-09-21] MEDS: DEXTROSE 50% 50ML SYRINGE IV STA (21:42)
[2024-09-21] MEDS: HumuLIN R (REGULAR) INSULIN (NovoLIN R) **100U/ML** PER UNIT IV ONE (21:44)
[2024-09-21] MEDS: CALCIUM GLUCONATE 1,000 MG in DEXTROSE 5% (D5W) MINI-BAG PLU 100 ML IV ONE (21:45)
[2024-09-21 21:50] LABS: KETONE, URINE AUTO RFX NEGATIVE (NEGATIVE); MUCUS, URINE RFX SMALL (NEGATIVE); NITRITE, URINE AUTO RFX NEGATIVE (NEGATIVE); RBC, URINE AUTO RFX 9 /HPF (0-3); SQUAM EPITHELIAL CELL UR AURFX 1 /HPF (0-6)
[2024-09-21 21:57] LABS: LEUKOCYTE ESTERASE UR AUTO RFX 2+ (NEGATIVE); WBC, URINE AUTO RFX 57 /HPF (0-3)
[2024-09-21] MEDS: cefTRIAXone SOD 1 GM in DEXTROSE 5% (D5W) ADV/MINI-BAG 50 ML IV ONE (22:59)
[2024-09-21] MEDS ORDERED: SPIR-10 PO (22:59)
[2024-09-21] MEDS ORDERED: FURO20TA2 PO (22:59)
[2024-09-21] MEDS ORDERED: PROP10TA56 PO (22:59)
[2024-09-21] MEDS ORDERED: HOME MED LIST COMPLETE! XX SCH (23:00)
[2024-09-22] MEDS: FUROSEMIDE 40MG/4ML VIAL IV ONE (02:45)
[2024-09-22] MEDS: LEVOTHYROXINE 150MCG TABLET (0.15MG) PO SCH (07:31)
[2024-09-22] MEDS: HEPARIN SOD (PORCINE) 5000UNITS/ML 1ML VIAL/SYRINGE SC SCH (07:32)
[2024-09-22] MEDS: NYSTATIN 100,000 UNITS/GM TOPICAL PWD 15GM TOP SCH (09:00)
[2024-09-22] MEDS: FUROSEMIDE 40MG/4ML VIAL IV SCH (09:38)
[2024-09-22] MEDS: cefTRIAXone SOD 2 GM in DEXTROSE 5% (D5W) ADV/MINI-BAG 50 ML IV SCH (09:39)
[2024-09-22] MEDS: PROPRANOLOL 10 MG TAB PO SCH (09:39)
[2024-09-22 10:19] LABS: ALBUMIN 1.9 G/DL (3.2-5.2); BILIRUBIN,TOTAL 0.8 MG/DL (0.3-1.2); CALCIUM LEVEL 8.2 MG/DL (8.3-10.6); CREATININE FOR GFR 2.02 MG/DL (0.55-1.30); MAGNESIUM LEVEL 1.5 MG/DL (1.8-2.4); POTASSIUM SERUM 5.6 MMOL/L (3.5-5.1); TOTAL PROTEIN 4.8 G/DL (5.7-8.2)
[2024-09-22] MEDS: MAG SULF 1GM/100ML (MAG RUN) 1 GM in IV 1 EA IV SCH (11:57)
[2024-09-22] MEDS: MAGNESIUM OXIDE 400MG TAB (MAG-OX) PO SCH (11:57)
[2024-09-22 12:26] LABS: HEMATOCRIT 36.7 % (36.0-47.0); HEMOGLOBIN 12.2 g/dl (12.0-15.5); MEAN CORPUSCULAR HEMOGLOBIN 33.2 pg (27.0-33.0); MEAN CORPUSCULAR HGB CONC 33.2 g/dl (32.0-36.5); PLATELET COUNT, AUTOMATED 150 10^3/uL (150-450); RED BLOOD COUNT 3.67 10^6/uL (4.00-5.40); WHITE BLOOD COUNT 18.2 10^3/uL (4.0-10.0)
[2024-09-22] MEDS: PATIROMER SORBITEX CALCIUM 8.4 GM POWDER PACKET (VELTASSA) PO ONE (13:19)
[2024-09-22] MEDS: SODIUM BICARBONATE 325 MG TAB PO SCH (13:20)
[2024-09-22] MEDS: FUROSEMIDE 100MG/10ML VIAL IV SCH (17:26)
[2024-09-22] MEDS ORDERED: FUROSEMIDE 40MG/4ML VIAL IV SCH (21:00)
[2024-09-22] MEDS: SIMVASTATIN 10 MG TAB PO SCH (21:53)
[2024-09-22] MEDS: CEFEPIME HCL 1 GM in DEXTROSE 5% (D5W) ADV/MINI-BAG 50 ML IV SCH (21:53)
[2024-09-23 08:35] LABS: EOS % 0.2 % (0.0-3.0); HEMATOCRIT 34.9 % (36.0-47.0); HEMOGLOBIN 11.9 g/dl (12.0-15.5); LYMPH # 1.5 10^3/uL (1.5-5.0); LYMPH % 12.8 % (24.0-44.0); MEAN CORPUSCULAR HEMOGLOBIN 33.5 pg (27.0-33.0); MEAN CORPUSCULAR HGB CONC 34.1 g/dl (32.0-36.5); MEAN CORPUSCULAR VOLUME 98.3 fl (80.0-96.0); MONO # 0.7 10^3/uL (0.0-0.8); NEUTROPHILS # 9.4 10^3/uL (1.5-8.5); NEUTROPHILS % 80.5 % (36.0-66.0); PLATELET COUNT, AUTOMATED 119 10^3/uL (150-450); RED BLOOD COUNT 3.55 10^6/uL (4.00-5.40); WHITE BLOOD COUNT 11.7 10^3/uL (4.0-10.0)
[2024-09-23 09:17] LABS: CALCIUM LEVEL 7.7 MG/DL (8.3-10.6); CREATININE FOR GFR 2.17 MG/DL (0.55-1.30); GLOMERULAR FILTRATION RATE 23.9 (>45); MAGNESIUM LEVEL 1.9 MG/DL (1.8-2.4); POTASSIUM SERUM 4.3 MMOL/L (3.5-5.1)
[2024-09-23] MEDS: LACTOBACILLUS ACIDOPHILUS CAP (BACID) PO SCH (18:18)
[2024-09-23 18:21] VITALS: BP 124/59; TEMP 97; O2SAT 99
[2024-09-23 18:35] VITALS: BP 118/55; TEMP 97; O2SAT 100
[2024-09-23] MEDS: FUROSEMIDE 100MG/10ML VIAL IV ONE (19:30)
[2024-09-23 23:12] VITALS: BP 106/78; TEMP 97.3; O2SAT 100
[2024-09-24] VITALS (8 sets, daily range): BP systolic 98–120; BP diastolic 52–65; TEMP 97.2–98.3; O2SAT 94–100
[2024-09-24 07:34] LABS: EOS % 0.4 % (0.0-3.0); HEMATOCRIT 33.3 % (36.0-47.0); HEMOGLOBIN 11.4 g/dl (12.0-15.5); LYMPH # 1.5 10^3/uL (1.5-5.0); LYMPH % 16.9 % (24.0-44.0); MEAN CORPUSCULAR HEMOGLOBIN 33.6 pg (27.0-33.0); MEAN CORPUSCULAR HGB CONC 34.2 g/dl (32.0-36.5); MEAN CORPUSCULAR VOLUME 98.2 fl (80.0-96.0); MONO # 0.6 10^3/uL (0.0-0.8); MONO % 6.5 % (2.0-8.0); NEUTROPHILS # 6.5 10^3/uL (1.5-8.5); NEUTROPHILS % 75.8 % (36.0-66.0); RED BLOOD COUNT 3.39 10^6/uL (4.00-5.40); WHITE BLOOD COUNT 8.6 10^3/uL (4.0-10.0)
[2024-09-24 07:46] LABS: INR 1.43; PROTHROMBIN TIME 17.7 SECONDS (12.5-14.5)
[2024-09-24 08:04] LABS: CALCIUM LEVEL 7.7 MG/DL (8.3-10.6); CREATININE FOR GFR 2.2 MG/DL (0.55-1.30); GLOMERULAR FILTRATION RATE 23.6 (>45)
[2024-09-24 08:07] LABS: THYROID STIMULATING HORMONE 5.095 uIU/ML (0.55-4.78)
[2024-09-24] MEDS: MAGNESIUM SULFATE GRANULES (EPSOM SALT) 1LB TOP SCH (09:00)
[2024-09-24] MEDS: PREPARATION H OINTMENT (HEMORRHOID) TOP SCH (09:00)
[2024-09-24 09:07] LABS: PLATELET COUNT, AUTOMATED 93 10^3/uL (150-450)
[2024-09-24 16:28] LABS: APPEARANCE, BODY FLUID CLEAR (CLEAR); ASCITES FL COLOR PALE YELLOW (COLORLESS); SOURCE, BODY FLUID ASCITES
[2024-09-24 17:46] LABS: SOURCE, BODY FLUID ALBUMIN ASCITES
[2024-09-24 17:51] LABS: SOURCE, BODY FLUID GLUCOSE ASCITES; SOURCE, BODY FLUID TOT PROTEIN ASCITES; TOTAL PROTEIN, BODY FLUID < 2.0 G/DL (NOT ESTABLISHED)
[2024-09-24] MEDS: ACETAMINOPHEN 325 MG TAB PO PRN (19:20)
[2024-09-24] MEDS: PANTOPRAZOLE 40MG VIAL IV SCH (20:29)
[2024-09-25] VITALS (15 sets, daily range): BP systolic 90–112; BP diastolic 46–57; TEMP 96.2–98.7; O2SAT 94–99
[2024-09-25 07:22] LABS: CALCIUM LEVEL 7.5 MG/DL (8.3-10.6); CREATININE FOR GFR 2.17 MG/DL (0.55-1.30); GLOMERULAR FILTRATION RATE 23.9 (>45); POTASSIUM SERUM 3.8 MMOL/L (3.5-5.1)
[2024-09-25 07:23] LABS: EOS % 0.4 % (0.0-3.0); HEMATOCRIT 28.6 % (36.0-47.0); HEMOGLOBIN 9.6 g/dl (12.0-15.5); LYMPH # 1.5 10^3/uL (1.5-5.0); LYMPH % 21.7 % (24.0-44.0); MEAN CORPUSCULAR HEMOGLOBIN 33.3 pg (27.0-33.0); MEAN CORPUSCULAR HGB CONC 33.6 g/dl (32.0-36.5); MEAN CORPUSCULAR VOLUME 99.3 fl (80.0-96.0); MONO # 0.5 10^3/uL (0.0-0.8); MONO % 7.6 % (2.0-8.0); NEUTROPHILS # 4.8 10^3/uL (1.5-8.5); RED BLOOD COUNT 2.88 10^6/uL (4.00-5.40); WHITE BLOOD COUNT 6.8 10^3/uL (4.0-10.0)
[2024-09-25 07:49] LABS: PLATELET COUNT, AUTOMATED 78 10^3/uL (150-450)
[2024-09-25] MEDS: MORPHINE 2 MG/ML 1ML VIAL IV ONE (09:38)
[2024-09-25] MEDS: FUROSEMIDE injection 100 MG, VIAL 2 BAG 13MM ADAPTER 1 EACH in NS 100 ML IV SCH (09:39)
[2024-09-25] MEDS: ONDANSETRON 4MG 2ML VIAL IV PRN (12:12)
[2024-09-25] MEDS: MIDODRINE 5 MG TAB PO SCH (12:13)
[2024-09-25] MEDS: CEFDINIR 300 MG CAP (OMNICEF) PO SCH (13:14)
[2024-09-25] MEDS: GABAPENTIN 100 MG CAP PO PRN (21:23)
[2024-09-26] VITALS (7 sets, daily range): BP systolic 94–117; BP diastolic 42–56; TEMP 96.3–97.6; O2SAT 96–98
[2024-09-26 06:23] LABS: EOS % 0.2 % (0.0-3.0); HEMATOCRIT 32.8 % (36.0-47.0); HEMOGLOBIN 11.1 g/dl (12.0-15.5); LYMPH # 1.3 10^3/uL (1.5-5.0); MEAN CORPUSCULAR HEMOGLOBIN 33.4 pg (27.0-33.0); MEAN CORPUSCULAR HGB CONC 33.8 g/dl (32.0-36.5); MEAN CORPUSCULAR VOLUME 98.8 fl (80.0-96.0); MONO # 0.5 10^3/uL (0.0-0.8); MONO % 5.2 % (2.0-8.0); NEUTROPHILS # 7.9 10^3/uL (1.5-8.5); NEUTROPHILS % 81.3 % (36.0-66.0); RED BLOOD COUNT 3.32 10^6/uL (4.00-5.40); WHITE BLOOD COUNT 9.8 10^3/uL (4.0-10.0)
[2024-09-26 06:25] LABS: PLATELET COUNT, AUTOMATED 69 10^3/uL (150-450)
[2024-09-26 06:39] LABS: CALCIUM LEVEL 7.5 MG/DL (8.3-10.6); CREATININE FOR GFR 2.14 MG/DL (0.55-1.30); GLOMERULAR FILTRATION RATE 24.3 (>45); MAGNESIUM LEVEL 1.7 MG/DL (1.8-2.4); POTASSIUM SERUM 3.6 MMOL/L (3.5-5.1)
[2024-09-26] MEDS: MIDODRINE 5 MG TAB PO SCH (13:46)
[2024-09-26] MEDS: MAGNESIUM OXIDE 400MG TAB (MAG-OX) PO SCH (21:51)
[2024-09-27] VITALS (7 sets, daily range): BP systolic 100–116; BP diastolic 48–59; TEMP 96.8–97.9; O2SAT 95–98
[2024-09-27 05:36] LABS: BASO % 0.1 % (0.0-1.0); EOS % 0.3 % (0.0-3.0); HEMOGLOBIN 10.5 g/dl (12.0-15.5); LYMPH # 1.4 10^3/uL (1.5-5.0); MEAN CORPUSCULAR HEMOGLOBIN 33.1 pg (27.0-33.0); MEAN CORPUSCULAR HGB CONC 33.9 g/dl (32.0-36.5); MEAN CORPUSCULAR VOLUME 97.8 fl (80.0-96.0); MONO # 0.6 10^3/uL (0.0-0.8); MONO % 5.8 % (2.0-8.0); NEUTROPHILS # 8.2 10^3/uL (1.5-8.5); NEUTROPHILS % 79.4 % (36.0-66.0); RED BLOOD COUNT 3.17 10^6/uL (4.00-5.40); WHITE BLOOD COUNT 10.3 10^3/uL (4.0-10.0)
[2024-09-27 05:38] LABS: PLATELET COUNT, AUTOMATED 66 10^3/uL (150-450)
[2024-09-27 05:54] LABS: CALCIUM LEVEL 7.5 MG/DL (8.3-10.6); CREATININE FOR GFR 2.19 MG/DL (0.55-1.30); GLOMERULAR FILTRATION RATE 23.7 (>45); POTASSIUM SERUM 3.6 MMOL/L (3.5-5.1)
[2024-09-27 05:59] LABS: PROCALCITONIN 0.47 ng/ml
[2024-09-27] MEDS: MAG SULF 1GM/100ML (MAG RUN) 1 GM in IV 1 EA IV ONE (11:47)
[2024-09-27] MEDS: oxyCODONE 5MG TAB PO PRN (15:02)
[2024-09-28] VITALS (13 sets, daily range): BP systolic 103–138; BP diastolic 54–72; TEMP 95.5–97.2; O2SAT 96–98
[2024-09-28 07:00] LABS: CALCIUM LEVEL 7.7 MG/DL (8.3-10.6); CREATININE FOR GFR 2.17 MG/DL (0.55-1.30); GLOMERULAR FILTRATION RATE 23.9 (>45); POTASSIUM SERUM 3.8 MMOL/L (3.5-5.1)
[2024-09-28] MEDS ORDERED: ISOVUE-300 61% 100ML VIAL As Ordered ONE (08:03)
[2024-09-28] MEDS ORDERED: LIDOCAINE 1% MDV 20ML VIAL As Ordered ONE (08:03)
[2024-09-28] MEDS ORDERED: MIDAZOLAM INJ 2MG/2ML VIAL As Ordered ONE (08:17)
[2024-09-28] MEDS ORDERED: fentaNYL 100 MCG/2 ML INJECTION As Ordered ONE (08:17)
[2024-09-28 08:42] LABS: HEMATOCRIT 36.6 % (36.0-47.0); HEMOGLOBIN 12.4 g/dl (12.0-15.5); MEAN CORPUSCULAR HEMOGLOBIN 33.6 pg (27.0-33.0); MEAN CORPUSCULAR HGB CONC 33.9 g/dl (32.0-36.5); MEAN CORPUSCULAR VOLUME 99.2 fl (80.0-96.0); PLATELET COUNT, AUTOMATED 101 10^3/uL (150-450); RED BLOOD COUNT 3.69 10^6/uL (4.00-5.40); WHITE BLOOD COUNT 14.5 10^3/uL (4.0-10.0)
[2024-09-28] MEDS: NS (Normal Saline) 0.9% 1,000 ML IV SCH (10:42)
[2024-09-29 03:44] VITALS: BP 106/56; TEMP 97; O2SAT 98
[2024-09-29 04:00] VITALS: O2SAT 98
[2024-09-29 05:44] LABS: HEMOGLOBIN 11.4 g/dl (12.0-15.5); MEAN CORPUSCULAR HGB CONC 33.5 g/dl (32.0-36.5); MEAN CORPUSCULAR VOLUME 98.6 fl (80.0-96.0); RED BLOOD COUNT 3.45 10^6/uL (4.00-5.40); WHITE BLOOD COUNT 13.8 10^3/uL (4.0-10.0)
[2024-09-29 06:02] LABS: PLATELET COUNT, AUTOMATED 94 10^3/uL (150-450)
[2024-09-29 06:09] LABS: CALCIUM LEVEL 7.8 MG/DL (8.3-10.6); CREATININE FOR GFR 2.3 MG/DL (0.55-1.30); GLOMERULAR FILTRATION RATE 22.4 (>45); POTASSIUM SERUM 3.7 MMOL/L (3.5-5.1)
[2024-09-29] MEDS: MIRALAX *UNIT DOSE* 17GM PACKET PO SCH (09:00)
[2024-09-29] MEDS ORDERED: FLEET ENEMA PR PRN (09:50)
[2024-09-29] MEDS: SENNA 8.6 MG TAB (SENOKOT) PO SCH (10:09)
[2024-09-29] MEDS: BISACODYL 10MG SUPP PR SCH (10:12)
[2024-09-29 12:00] VITALS: BP 114/67; TEMP 97; O2SAT 97
[2024-09-29 20:33] VITALS: BP 110/58; TEMP 97; O2SAT 98
[2024-09-30 03:58] VITALS: BP 112/57; TEMP 97; O2SAT 97
[2024-09-30 06:34] LABS: HEMATOCRIT 34.1 % (36.0-47.0); HEMOGLOBIN 11.9 g/dl (12.0-15.5); MEAN CORPUSCULAR HEMOGLOBIN 33.8 pg (27.0-33.0); MEAN CORPUSCULAR HGB CONC 34.9 g/dl (32.0-36.5); MEAN CORPUSCULAR VOLUME 96.9 fl (80.0-96.0); PLATELET COUNT, AUTOMATED 111 10^3/uL (150-450); RED BLOOD COUNT 3.52 10^6/uL (4.00-5.40); WHITE BLOOD COUNT 13.7 10^3/uL (4.0-10.0)
[2024-09-30 07:04] LABS: CALCIUM LEVEL 8.1 MG/DL (8.3-10.6); CREATININE FOR GFR 2.43 MG/DL (0.55-1.30); POTASSIUM SERUM 3.7 MMOL/L (3.5-5.1)
[2024-09-30 12:00] VITALS: BP 113/57; TEMP 96.8; O2SAT 97
[2024-09-30] MEDS: BUMETANIDE 1 MG TAB PO SCH (12:09)
[2024-09-30] MEDS: SPIRONOLACTONE 50 MG TAB PO SCH (17:36)
[2024-09-30] MEDS: SODIUM BICARBONATE 325 MG TAB PO SCH (20:44)
[2024-09-30 20:53] VITALS: BP 121/65; TEMP 97.2; O2SAT 96
[2024-09-30] MEDS ORDERED: BISACODYL 10MG SUPP PR PRN (22:15)
[2024-09-30] MEDS ORDERED: MIRALAX *UNIT DOSE* 17GM PACKET PO PRN (22:15)
[2024-09-30] MEDS ORDERED: SENNA 8.6 MG TAB (SENOKOT) PO PRN (22:15)
[2024-10-01 04:55] VITALS: BP 119/74; TEMP 97.2; O2SAT 96
[2024-10-01 05:51] LABS: HEMATOCRIT 33.6 % (36.0-47.0); HEMOGLOBIN 11.4 g/dl (12.0-15.5); MEAN CORPUSCULAR HEMOGLOBIN 32.9 pg (27.0-33.0); MEAN CORPUSCULAR HGB CONC 33.9 g/dl (32.0-36.5); MEAN CORPUSCULAR VOLUME 97.1 fl (80.0-96.0); PLATELET COUNT, AUTOMATED 139 10^3/uL (150-450); RED BLOOD COUNT 3.46 10^6/uL (4.00-5.40); WHITE BLOOD COUNT 15.4 10^3/uL (4.0-10.0)
[2024-10-01 06:39] LABS: CALCIUM LEVEL 7.9 MG/DL (8.3-10.6); CREATININE FOR GFR 2.62 MG/DL (0.55-1.30); GLOMERULAR FILTRATION RATE 19.3 (>45); POTASSIUM SERUM 3.8 MMOL/L (3.5-5.1)
[2024-10-01] MEDS: PANTOPRAZOLE 40MG TAB (PROTONIX) PO SCH (09:55)
[2024-10-01 12:00] VITALS: BP 123/63; TEMP 97; O2SAT 98
[2024-10-01 21:15] VITALS: BP 107/63; TEMP 97.3; O2SAT 96
[2024-10-02 03:54] VITALS: BP 111/63; TEMP 97.2; O2SAT 93
[2024-10-02 06:28] LABS: HEMATOCRIT 34.2 % (36.0-47.0); HEMOGLOBIN 11.6 g/dl (12.0-15.5); MEAN CORPUSCULAR HEMOGLOBIN 32.7 pg (27.0-33.0); MEAN CORPUSCULAR HGB CONC 33.9 g/dl (32.0-36.5); MEAN CORPUSCULAR VOLUME 96.3 fl (80.0-96.0); PLATELET COUNT, AUTOMATED 142 10^3/uL (150-450); RED BLOOD COUNT 3.55 10^6/uL (4.00-5.40); WHITE BLOOD COUNT 15.2 10^3/uL (4.0-10.0)
[2024-10-02 06:55] LABS: CREATININE FOR GFR 2.85 MG/DL (0.55-1.30); GLOMERULAR FILTRATION RATE 17.5 (>45); POTASSIUM SERUM 4.1 MMOL/L (3.5-5.1)
[2024-10-02 12:00] VITALS: BP 110/64; TEMP 97.3; O2SAT 95
[2024-10-02 20:04] VITALS: BP 113/65; TEMP 97.3; O2SAT 96
[2024-10-02] MEDS: ALPRAZolam 0.25 MG TAB PO PRN (23:00)
[2024-10-03 05:50] LABS: HEMATOCRIT 33.6 % (36.0-47.0); HEMOGLOBIN 11.6 g/dl (12.0-15.5); MEAN CORPUSCULAR HGB CONC 34.5 g/dl (32.0-36.5); MEAN CORPUSCULAR VOLUME 95.7 fl (80.0-96.0); PLATELET COUNT, AUTOMATED 147 10^3/uL (150-450); RED BLOOD COUNT 3.51 10^6/uL (4.00-5.40); WHITE BLOOD COUNT 16.6 10^3/uL (4.0-10.0)
[2024-10-03 06:26] LABS: CREATININE FOR GFR 3.04 MG/DL (0.55-1.30); GLOMERULAR FILTRATION RATE 16.2 (>45); POTASSIUM SERUM 4.1 MMOL/L (3.5-5.1)
[2024-10-03 12:00] VITALS: BP 126/63; TEMP 97; O2SAT 96
[2024-10-03 20:52] VITALS: BP 116/60; TEMP 97; O2SAT 96
[2024-10-04 04:00] VITALS: BP 110/66; TEMP 97; O2SAT 97
[2024-10-04 05:58] LABS: HEMATOCRIT 34.3 % (36.0-47.0); HEMOGLOBIN 11.8 g/dl (12.0-15.5); MEAN CORPUSCULAR HEMOGLOBIN 33.5 pg (27.0-33.0); MEAN CORPUSCULAR HGB CONC 34.4 g/dl (32.0-36.5); MEAN CORPUSCULAR VOLUME 97.4 fl (80.0-96.0); PLATELET COUNT, AUTOMATED 152 10^3/uL (150-450); RED BLOOD COUNT 3.52 10^6/uL (4.00-5.40); WHITE BLOOD COUNT 15.7 10^3/uL (4.0-10.0)
[2024-10-04 06:44] LABS: CALCIUM LEVEL 7.5 MG/DL (8.3-10.6); CREATININE FOR GFR 3.25 MG/DL (0.55-1.30); POTASSIUM SERUM 3.9 MMOL/L (3.5-5.1)
[2024-10-04 12:00] VITALS: BP 129/61; TEMP 96.9; O2SAT 96
[2024-10-04 12:20] VITALS: BP 121/67
[2024-10-04 16:40] VITALS: BP 108/51
[2024-10-04 22:21] VITALS: BP 122/73; TEMP 97.9; O2SAT 97
[2024-10-05 05:05] VITALS: BP 114/55; TEMP 97.9; O2SAT 96
[2024-10-05 06:03] LABS: HEMATOCRIT 37.1 % (36.0-47.0); HEMOGLOBIN 12.7 g/dl (12.0-15.5); MEAN CORPUSCULAR HEMOGLOBIN 33.4 pg (27.0-33.0); MEAN CORPUSCULAR HGB CONC 34.2 g/dl (32.0-36.5); MEAN CORPUSCULAR VOLUME 97.6 fl (80.0-96.0); PLATELET COUNT, AUTOMATED 165 10^3/uL (150-450); WHITE BLOOD COUNT 20.7 10^3/uL (4.0-10.0)
[2024-10-05 06:25] LABS: BILIRUBIN,TOTAL 1.1 MG/DL (0.3-1.2); CALCIUM LEVEL 8.3 MG/DL (8.3-10.6); CREATININE FOR GFR 3.42 MG/DL (0.55-1.30); GLOMERULAR FILTRATION RATE 14.2 (>45); POTASSIUM SERUM 4.3 MMOL/L (3.5-5.1); TOTAL PROTEIN 4.4 G/DL (5.7-8.2)
[2024-10-05 14:20] VITALS: BP 120/65; TEMP 97; O2SAT 95
[2024-10-05] MEDS ORDERED: PILL CUTTER 1 EACH XX ONE (19:38)
[2024-10-05 20:51] VITALS: BP 114/61; TEMP 97.9; O2SAT 95
[2024-10-06 05:40] VITALS: BP 104/56; TEMP 97.5; O2SAT 98
[2024-10-06 06:09] LABS: HEMATOCRIT 38.1 % (36.0-47.0); HEMOGLOBIN 13.1 g/dl (12.0-15.5); MEAN CORPUSCULAR HEMOGLOBIN 33.2 pg (27.0-33.0); MEAN CORPUSCULAR HGB CONC 34.4 g/dl (32.0-36.5); MEAN CORPUSCULAR VOLUME 96.7 fl (80.0-96.0); PLATELET COUNT, AUTOMATED 186 10^3/uL (150-450); RED BLOOD COUNT 3.94 10^6/uL (4.00-5.40); WHITE BLOOD COUNT 17.4 10^3/uL (4.0-10.0)
[2024-10-06 06:31] LABS: CALCIUM LEVEL 8.1 MG/DL (8.3-10.6); CREATININE FOR GFR 3.64 MG/DL (0.55-1.30); GLOMERULAR FILTRATION RATE 13.2 (>45); POTASSIUM SERUM 4.4 MMOL/L (3.5-5.1); TOTAL PROTEIN 4.4 G/DL (5.7-8.2)
[2024-10-06 12:00] VITALS: TEMP 98.1; O2SAT 96
[2024-10-06 20:22] VITALS: BP 116/61; TEMP 97.7; O2SAT 94
[2024-10-07 04:00] VITALS: BP 101/47; TEMP 97.5; O2SAT 94
[2024-10-07 12:00] VITALS: BP 110/56; TEMP 97.7; O2SAT 96
[2024-10-07] MEDS: MORPHINE 2 MG/ML 1ML VIAL IV ONE (15:27)
[2024-10-07 20:26] VITALS: BP 110/50; TEMP 97.9; O2SAT 93
[2024-10-08 05:48] VITALS: BP 112/49; TEMP 97.3; O2SAT 95
[2024-10-08] MEDS ORDERED: ATROPINE SULFATE 1% OPHTH SOLN 2ML BTL SL PRN (10:30)
[2024-10-08] MEDS ORDERED: HYOSCYAMINE SULFATE 0.125 MG SUBL TABLET PO PRN (10:30)
[2024-10-08] MEDS: ONDANSETRON 4MG ORAL DISINTEGRATING TAB PO PRN (12:42)
[2024-10-08] MEDS: MORPHINE 10MG/0.5ML ORAL CONCENTRATE SOLUTION U/D SL PRN (13:03)
[2024-10-09] MEDS: LORazepam 1 MG TAB PO PRN (02:12)
[2024-10-09] MEDS ORDERED: MORPHINE 10MG/0.5ML ORAL CONCENTRATE SOLUTION U/D SL PRN (10:05)
[2024-10-09] MEDS ORDERED: LORazepam 1 MG TAB PO PRN (13:00)
[2024-10-09] MEDS: MORPHINE 10MG/0.5ML ORAL CONCENTRATE SOLUTION U/D SL SCH (13:47)
== END 2024-10-10 15:25 | disposition expired | DRG 433 ==
LOC: EDBD 15:49 → M ED 15:49 → M ED INP 23:12 → M PCU 09-23 23:08 → M MSPAV 09-25 16:25
PROVIDERS: ADMIT Family Medicine; ATTEND Student in an Organized Health Care Education/Training Program
PROC: 30233J1 Transfusion of Nonautologous Serum Albumin into Peripheral Vein, Percutaneous Approach (ICD-10-PCS; 2024-09-23)
PROC: 0W9G3ZZ Drainage of Peritoneal Cavity, Percutaneous Approach (ICD-10-PCS; 2024-09-24)
PROC: 0T25X0Z Change Drainage Device in Kidney, External Approach (ICD-10-PCS; 2024-09-28)
PROC: 0JB73ZX Excision of Back Subcutaneous Tissue and Fascia, Percutaneous Approach, Diagnostic (ICD-10-PCS; principal; 2024-09-28 10:30)
DX: K74.60 Unspecified cirrhosis of liver (principal); N39.0 Urinary tract infection, site not specified; N17.9 Acute kidney failure, unspecified; E87.20 Acidosis, unspecified; E87.1 Hypo-osmolality and hyponatremia; J90 Pleural effusion, not elsewhere classified; R18.8 Other ascites; C78.7 Secondary malignant neoplasm of liver and intrahepatic bile duct; I85.10 Secondary esophageal varices without bleeding; K76.6 Portal hypertension; K92.1 Melena; C79.51 Secondary malignant neoplasm of bone; C67.9 Malignant neoplasm of bladder, unspecified; I12.9 Hypertensive chronic kidney disease with stage 1 through stage 4 chronic kidney disease, or unspecified chronic kidney disease; E78.5 Hyperlipidemia, unspecified; Z66 Do not resuscitate; G47.33 Obstructive sleep apnea (adult) (pediatric); L30.4 Erythema intertrigo; K21.9 Gastro-esophageal reflux disease without esophagitis; G25.81 Restless legs syndrome; R26.89 Other abnormalities of gait and mobility; K76.89 Other specified diseases of liver; E03.9 Hypothyroidism, unspecified; N18.30 Chronic kidney disease, stage 3 unspecified; D69.6 Thrombocytopenia, unspecified; Z87.891 Personal history of nicotine dependence; Z85.828 Personal history of other malignant neoplasm of skin; Z79.890 Hormone replacement therapy; Z79.899 Other long term (current) drug therapy; Z88.5 Allergy status to narcotic agent; E87.5 Hyperkalemia; N13.9 Obstructive and reflux uropathy, unspecified; R57.1 Hypovolemic shock; R57.0 Cardiogenic shock; Z93.6 Other artificial openings of urinary tract status; E87.70 Fluid overload, unspecified; R19.7 Diarrhea, unspecified; K59.00 Constipation, unspecified